=== PATIENT | female | born 1945 | race Caucasian/White ===

== ENCOUNTER 2020-04-24 10:08 | Inpatient (IN) ==
--- OUTSIDE RECORDS SUMMARY | 2020-04-24 10:11 | External Medical Summary | Continuity of Care Document ---
:1945 Author Name Glo Hoffman Address Unavailable Unavailable , Care Team Providers Name Role Phone Maci Goodrich M.D. [email or web address] Ram[place]rez M.D. 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) Hypercalcemia (275.42) (E83.52) Fibromyalgia (729.1) (M79.7) Depression (311) (F32.9) Dysmetabolic syndrome X (277.7) (E88.81) Chronic pain syndrome (338.4) (G89.4) Allergies and Adverse Reactions Feldene CAPS (Allergy) Reaction: Rash Levaquin TABS (Allergy) Reaction: Diarrh ea Penicillins (Allergy) Reaction: Rash, [place] Sulfa Drugs (Allergy) Reaction: Rash Suprax TABS (Allergy) Reaction: Diarrhea Medications metFORMIN HCl ER 500 MG Oral Tablet Exte nded Release 24 Hour; TAKE 2 TABLET Twice daily Start: 04-Aug-2011 Refills: 0 Claritin-D 24 Hour 10-240 MG Oral Tablet Extended Release 24 Hour; TAKE 1 TABLET DAILY DIRECTED. Refills: 0 Ipratropium [place] 0.03 % Nasal Solution; INSTILL 2 SQUIRT Every 6 hours Refills: 0 Nasalide SOLN Refills: 0 ProAir HFA 108 (90 Base) MCG/ACT Inhalat ion Aerosol Solution; INHALE 2 PUFFS Every 6 hours Refills: 0 metOLazone 2.5 MG Oral Tablet; TAKE 1 TABLET DAILY. Refills: 0 Spironolactone 100 MG Oral Tablet; TAKE 1 TABLET ONCE DAILY. Refills: 0 Klor-Con 10 10 MEQ Oral Tablet Extended Release; TAKE 1 TABL ET 3 TIMES DAILY. Refills: 0 HYDROcodone-Acetaminophen 10-325 MG Oral Tablet; TAKE 1 TABL ET Every 6 hours Refills: 0 CeleBREX 200 MG Oral Capsule; TAKE 1 CAPSULE TWICE DAILY NEEDED. Refills: 0 tiZANidine HCl - 4 MG Oral Tablet; TAKE 1 TABLET 3 TIMES RAZA LY. Refills: 0 fentaNYL 25 MCG/HR Transdermal Patch 72 Hour; APPLY 1 PATCH EVERY 3 DAYS Refills: 0 Asmanex (120 Metered Doses) 220 MCG/INH Inhalation Aerosol Powder Breath Activated; INHALE 2 PUFFS Daily Refills: 0 Zolpidem Tartrate ER 12.5 MG Oral Tablet Extended Release; T yolanda 1 tablet daily Refills: 0 Vitamin B Complex CAPS; TAKE 1 CAPSULE DAILY. Refills: 0 Vitamin C 500 MG Oral Tablet; Take 1 tablet twice daily Refills: 0 Centrum Silver Oral Tablet; TAKE 1 TABLET DAILY. Refills: 0 Aspirin 81 MG TABS; TAKE 1 TABLET DAILY. Refills: 0 Sensipar 30 MG Oral Tablet; TAKE 1 TABLET DAILY. Radha Goodrich Start: 10-Sep-2011 Quantity: 90 Refills: 3 Synthroid 125 MCG Oral Tablet; TAKE 1 TA BLET Daily Take in the morning with water, 30 minutes before eating anything. Yasmin Goodrich Start: 03-Dec-2011 Quantity: 30 Refills: 5 Procedures Procedures not documented Immunizations Immunizations not documented Plan of Treatment Planned Observations Planned Goals not documented Results No Known Results Results not documented
--- OUTSIDE RECORDS SUMMARY | 2020-04-24 10:11 | External Medical Summary | Continuity of Care Document ---
:1945 Author Name Glo Hoffman Address Unavailable Unavailable , Care Team Providers Name Role Phone Maci Goodrich M.D. Unavailable [email or web address] Rodrigo Ramírez M.D. Unavailable [email or web address] [place] Angela ISSA Unavailable Unavailable Unavailable Unavailable Unavailable [...] Rash Suprax TABS (Allergy) Reaction: Diarrhea Medications Synthroid 125 MCG Oral Tablet; TAKE 1 TA BLET Daily Take in the morning with water, 30 minutes before eating anything. Yasmin Goodrich OctAric Start: 03-Dec-2011 Quantity: 30 Refills: 5 Sensipar 30 MG Oral Tablet; TAKE 1 TABLET DAILY. Radha Goodrich Start: 10-Sep-2011 Quantity: 90 Refills: 3 metFORMIN HCl ER 500 MG Oral Tablet Exte nded Release 24 Hour; TAKE 2 TABLET Twice daily Start: 04-Aug-2011 Refills: 0 Claritin-D 24 Hour 10-240 MG Oral Tablet Extended Release 24 Hour; TAKE 1 TABLET DAILY DIRECTED. Refills: 0 Ipratropium [place] 0.03 % Nasal Solution; INSTILL 2 SQUIRT [...] TABS; TAKE 1 TABLET DAILY. Refills: 0 Procedures Procedures not documented Immunizations Immunizations not documented Plan of Treatment Planned Observations Planned Goals not documented Results No Known Results Results not documented
--- NOTE | 2020-04-24 10:45 | Emergency Department Note ---
History of Present Illness General Chief complaint: Cardiac Assessment Stated complaint: CARDIAC ASSESSMENT Time Seen by Provider: 04/24/20 10:18 Source: patient Mode of arrival: ambulatory Limitations: no limitations History of Present Illness Provider complaint: LE edema This is a74 to female who presents after being found to have an elevated heart rate at her PCP. Pt states she went to see her PCP at [facility] yesterday due to increased ankle swelling and was found to have an elevated HR. Pt states she was told to return today for a recheck and when she did her HR was still elevated so she was sent to the emergency room. Pt states she thinks she had mild sense of racing heart this am, no fluttering/skipping. States no hx of dysrhythmia. Pt states no change in meds or diet. No change in activity. Pt has chronic pain due to spinal stenosis and fibromyalgia. Denies hx of CHF. Pt denies SOB. Pt denies trauma. No numbness/tingling, no change in bowel/bladder function, no recent fevers/chills. Pt seen in conjunction with the resident, Dr. Townsend. Pt seen during a time of high acuity and national emergency pandemic while wearing PPE. Home Medications Home Medications Medication Instructions Recorded Confirmed Type Asmanex [place] 2 inh INHALATION DAILY 04/24/20 04/24/20 History Centrum Silver 1 tab PO DAILY 04/24/20 04/24/20 History albuterol sulfate [ProAir HFA] 2 puff INHALATION DIRECTED 04/24/20 04/24/20 History ascorbic acid (vitamin C) [Vitamin 500 mg PO DAILY 04/24/20 04/24/20 History C] celecoxib [Celebrex] 200 mg PO BID 04/24/20 04/24/20 History cholecalciferol (vitamin D3) 10 mcg PO DAILY 04/24/20 04/24/20 History [Vitamin D3] coenzyme Q10 [Co Q-10] 50 mg PO DAILY 04/24/20 04/24/20 History doxycycline hyclate 50 mg PO DAILY 04/24/20 04/24/20 History fentanyl [Duragesic] 1 patch TRANSDERMAL Q72H 04/24/20 04/24/20 History flunisolide 1 spray INTRANASAL DAILY 04/24/20 04/24/20 History guaifenesin [Mucinex] 600 mg PO BID 04/24/20 04/24/20 History ipratropium bromide 2 spray INTRANASAL UD 04/24/20 04/24/20 History levothyroxine [Synthroid] 112 mcg PO DAILY 04/24/20 04/24/20 History metformin 1,000 mg PO BID 04/24/20 04/24/20 History omega 2-tct-mot-fish oil 1 cap PO TID 04/24/20 04/24/20 History spironolactone [Aldactone] 100 mg PO DAILY 04/24/20 04/24/20 History tizanidine [Zanaflex] 4 mg PO QID 04/24/20 04/24/20 History vitamin B complex 1 tab PO DAILY 04/24/20 04/24/20 History zolpidem 12.5 mg PO DAILY 04/24/20 04/24/20 History potassium chloride [Klor-Con 10] 20 meq PO BID #120 tab 04/25/20 04/24/20 Rx Allergies Allergy/AdvReac Type Severity Reaction Status Date / Time Penicillins Allergy Unknown RASH,ITCH Verified 05/04/16 05:57 piroxicam Allergy Unknown PT USES Verified 05/04/16 05:57 CELEBREX AT HOME-RASH Sulfa (Sulfonamide Allergy Unknown RASH TO Verified 05/04/16 05:57 Antibiotics) SULFA DRUGS Cephalosporins AdvReac Unknown SUPRAX-GI Verified 05/04/16 05:57 UPSET levofloxacin AdvReac Unknown GI UPSET Verified 05/04/16 05:57 oxycodone AdvReac Unknown NAUSEA-MILD Verified 05/04/16 05:57 DISORIENTATION Past Med/Surg History Medical History (Updated 04/26/20 @ 00:13 by Yuko Fernandez DO) Allergic rhinitis (Chronic) Asthma (Chronic) Chronic pain (Acute) DM type 2 (diabetes mellitus, type 2) (Chronic) Dyslipidemia (Chronic) Fibromyalgia (Chronic) H/O Mansi thyroiditis (Chronic) H/O hyperparathyroidism (Chronic) Hypertension (Acute) Surgical History (Updated 04/24/20 @ 14:46 by Aaliyah Mcnair DO) H/O cervical spine surgery (Chronic) H/O parathyroidectomy (Chronic) H/O partial thyroidectomy (Chronic) H/O repair of rotator cuff (Chronic) History of arthroplasty of left knee (Chronic) History of arthroplasty of right knee (Chronic) S/P section (Chronic) S/P lumbar discectomy (Chronic) Family History (Updated 04/24/20 @ 14:46 by Aaliyah Mcnair DO) Other Coronary heart disease Diabetes Social History (Updated 04/24/20 @ 14:46 by Aaliyah Mcnair DO) Preferred Language: Swedish Communication Ability: Effective Beliefs That Will Affect Care: None Current Living Situation: Spouse Feels Safe at Home: Yes Smoking Status: Never smoker Second Hand Exposure: No ; Hx Alcohol Use: Yes Alcohol type: wine Hx Substance Use: No Review of Systems See HPI for pertinent positives & negatives. and A total of 10 systems reviewed and were otherwise negative Physical Exam Vital Signs Vital Signs - 24 hr 04/24/20 10:12 04/24/20 11:18 Temperature 37.1 C Temperature Source Oral Pulse Rate 111 H Pulse Rhythm Regular Pulse Strength Normal Respiratory Rate 18 Respiratory Effort / Characteristics Non-Labored Spontaneous Respiratory Depth Normal Respiratory Pattern Regular Blood Pressure 225/88 H Blood Pressure Mean 133 Blood Pressure Position Sitting Pulse Oximetry 100 Oxygen Delivery Method Room Air Room Air Sepsis Recent Fever Within 48 Hours No Sepsis New/Unexplained Change in Mental Status No Sepsis Action Taken by Nursing No Action Required GENERAL: alert, well appearing, well nourished, no distress, non-toxic EYE EXAM: normal conjunctiva, PERRL and EOM's grossly intact OROPHARYNX: no exudate, no erythema, lips, buccal mucosa, and tongue normal and mucous membranes are moist NECK: supple, no nuchal rigidity, no adenopathy, non-tender LUNGS: Clear to auscultation. Normal chest wall mechanics, no w/r/r HEART: no murmurs, S1 normal and S2 normal ABDOMEN: abdomen soft, non-tender, normo-active bowel sounds, no masses, no rebound or guarding. BACK: Back is symmetrical on inspection and there is no deformity, no midline tenderness, no CVA tenderness. Kyphotic. SKIN: no rashes and no bruising UPPER EXTREMITIES: upper extremities are grossly normal. FROM, nml pulses b/l. LOWER EXTREMITIES: 4+ pitting edema. FROM, nml pulses b/l. NEURO EXAM: Normal sensorium, cranial nerves II-XII grossly intact, normal speech, no gross weakness of arms, no gross weakness of legs. Gross sensation intact. Course Course 1202: Patient rechecked and updated at bedside. Patient blood pressure is improved, patient denies any sense of racing heart/palpitations. Dr. Townsend did discuss the case with Dr. Mcnair, [facility]. Administered Medications Discontinued Medications Hydrocodone Bitart/Acetaminophen ([place] 10/325) 1 tab PO Q4H PRN PRN Reason: Pain Stop: 05/08/20 15:43 Last Admin: 04/25/20 15:47 Dose: 1 tab Documented by: [id number] Admin: 04/25/20 11:02 Dose: 1 tab Documented by: [id number] Admin: 04/25/20 06:13 Dose: 1 tab Documented by: [id number] Admin: 04/25/20 02:07 Dose: 1 tab Documented by: [id number] Admin: 04/24/20 20:46 Dose: 1 tab Documented by: [id number] Admin: 04/24/20 16:27 Dose: 1 tab Documented by: [id number] Celecoxib (Celebrex) 100 mg PO BID RENA Stop: 05/24/20 20:59 Last Admin: 04/25/20 08:17 Dose: 100 mg Documented by: [id number] Admin: 04/24/20 22:27 Dose: 100 mg Documented by: [id number] Doxycycline Hyclate (Vibramycin) 50 mg PO DAILY RENA Stop: 05/25/20 08:59 Last Admin: 04/25/20 08:17 Dose: 50 mg Documented by: [id number] Fentanyl (Duragesic) 50 mcg TD Q72H RENA Stop: 05/08/20 15:59 Last Admin: 04/24/20 17:44 Dose: 50 mcg Documented by: [id number] Fluticasone Furoate (Arnuity Ellipta 200mcg) 1 puffs INH DAILY RENA Stop: 05/24/20 15:59 Last Admin: 04/25/20 08:19 Dose: 1 puffs Documented by: [id number] Admin: 04/24/20 18:46 Dose: 1 puffs Documented by: [id number] Guaifenesin (Mucinex) 600 mg PO BID RENA Stop: 05/24/20 20:59 Last Admin: 04/25/20 08:16 Dose: 600 mg Documented by: [id number] Admin: 04/24/20 21:44 Dose: 600 mg Documented by: [id number] Magnesium Sulfate/Dextrose (Magnesium Sulfate / D5w) 1 gm in 100 mls @ 200 mls/hr IV Q30M RENA Stop: 04/24/20 12:36 Last Infusion: 04/24/20 14:41 Dose: 0 mls/hr Documented by: [id number] Admin: 04/24/20 14:02 Dose: 200 mls/hr Documented by: [id number] Infusion: 04/24/20 13:30 Dose: 200 mls/hr Documented by: [id number] Admin: 04/24/20 13:00 Dose: 200 mls/hr Documented by: [id number] Potassium Phosphate 15 mmol/ (Sodium Chloride) 255 mls @ 88 mls/hr IV TODAY@1245 ONE Stop: 04/24/20 15:38 Last Infusion: 04/24/20 18:13 Dose: 0 mls/hr Documented by: [id number] Admin: 04/24/20 13:00 Dose: 88 mls/hr Documented by: [id number] Magnesium Sulfate/Dextrose (Magnesium Sulfate / D5w) 1 gm in 100 mls @ 50 mls/hr IV ONE ONE Stop: 04/24/20 17:59 Last Infusion: 04/24/20 19:57 Dose: 0 mls/hr Documented by: [id number] Admin: 04/24/20 17:52 Dose: 50 mls/hr Documented by: [id number] Magnesium Sulfate/Dextrose (Magnesium Sulfate / D5w) 1 gm in 100 mls @ 50 mls/hr IV ONE ONE Stop: 04/25/20 11:59 Last Infusion: 04/25/20 12:18 Dose: 0 mls/hr Documented by: [id number] Admin: 04/25/20 10:18 Dose: 50 mls/hr Documented by: [id number] Potassium Chloride (K Tony / Wtr) 10 meq in 100 mls @ 100 mls/hr IV Q1H RENA Stop: 04/25/20 12:59 Last Infusion: 04/25/20 13:22 Dose: 0 mls/hr Documented by: [id number] Admin: 04/25/20 12:17 Dose: 100 mls/hr Documented by: [id number] Infusion: 04/25/20 12:14 Dose: 100 mls/hr Documented by: [id number] Admin: 04/25/20 11:14 Dose: 100 mls/hr Documented by: [id number] Infusion: 04/25/20 11:14 Dose: 100 mls/hr Documented by: [id number] Admin: 04/25/20 10:18 Dose: 100 mls/hr Documented by: [id number] Insulin Aspart (Novolog Flexpen) 0 units SC ACHS [facility] Stop: 05/24/20 16:29 Last Admin: 04/25/20 12:05 Dose: 2 units Documented by: [id number] Cosigned by: [id number] Admin: 04/25/20 08:16 Dose: 3 units Documented by: [id number] Cosigned by: [id number] Admin: 04/24/20 21:40 Dose: 1 units Documented by: [id number] Cosigned by: [id number] Admin: 04/24/20 17:51 Dose: 2 units Documented by: [id number] Cosigned by: [id number] Insulin Glargine (Lantus Solostar Pen) 5 units SC BID [facility] Stop: 05/24/20 20:59 Last Admin: 04/25/20 08:16 Dose: 5 units Documented by: [id number] Cosigned by: [id number] Admin: 04/24/20 21:39 Dose: 5 units Documented by: [id number] Cosigned by: [id number] Labetalol HCl (Normodyne) 10 mg IV NOW STA Stop: 04/24/20 11:19 Last Admin: 04/24/20 11:33 Dose: 10 mg Documented by: [id number] Cosigned by: [id number] Levothyroxine Sodium (Synthroid) 112 mcg PO DAILYBB [facility] Stop: 05/25/20 06:29 Last Admin: 04/25/20 06:15 Dose: 112 mcg Documented by: [id number] Lidocaine (Lidoderm 5%) 1 patch TD QAM [facility] Stop: 05/24/20 15:59 Last Admin: 04/25/20 08:20 Dose: Not Given Documented by: [id number] Admin: 04/24/20 17:46 Dose: 1 patch Documented by: [id number] Miscellaneous (Fentanyl Patch Check Placement) 1 ea N/A QS [facility] Stop: 05/24/20 15:59 Last Admin: 04/25/20 08:17 Dose: 1 ea Documented by: [id number] Admin: 04/24/20 23:53 Dose: 1 ea Documented by: [id number] Admin: 07/15/20 17:46 Dose: 1 ea Documented by: [id number] Miscellaneous (Order Awaiting Action) 1 ea N/A QS RENA Stop: 05/24/20 15:59 Last Admin: 04/24/20 17:53 Dose: Not Given Documented by: [id number] Olenacellpradip (Order Awaiting Action) 1 ea N/A QS RENA Stop: 05/24/20 15:59 Last Admin: 04/24/20 17:53 Dose: Not Given Documented by: [id number] Olenacellaneous (Remove Lidoderm Patch) 1 ea N/A DAILY@2100 RENA Stop: 05/24/20 20:59 Last Admin: 04/24/20 21:42 Dose: Not Given Documented by: [id number] Systane: Non- Formulary Patient's Own Med 2 ea OP DAILY PRN PRN Reason: EYE DRYNESS Stop: 05/24/20 17:38 Last Admin: 04/25/20 08:18 Dose: 2 drops Documented by: [id number] Saline Nasal [place]: Non-Formulary Patient's Own Med 2 ea NA Q4 PRN PRN Reason: CONGESTION Stop: 05/24/20 17:45 Last Admin: 04/25/20 08:19 Dose: 2 sprays Documented by: [id number] Flunisolide: Non- Formulary Patient's Own Med 1 ea NA DAILY RENA Stop: 05/24/20 18:14 Last Admin: 04/25/20 08:20 Dose: 1 sprays Documented by: [id number] Ipratropium [place] Nasal [place]: Non- Formulary Patient's Own Med 1 ea NA BID RENA Stop: 05/24/20 20:59 Last Admin: 04/25/20 08:18 Dose: 1 sprays Documented by: [id number] Admin: 04/24/20 21:41 Dose: 1 sprays Documented by: [id number] Potassium Chloride (Klor-Con M20) 20 meq PO NOW STA Stop: 04/24/20 11:48 Last Admin: 04/24/20 13:01 Dose: Not Given Documented by: [id number] Potassium Chloride (Klor-Con M20) 20 meq PO BID RENA Stop: 04/26/20 09:01 Last Admin: 04/25/20 10:18 Dose: 20 meq Documented by: [id number] Potassium Phosphate (Potassium Phosphate Replace) 15 mmol IV NOW STA Stop: 04/24/20 11:36 Last Admin: 04/24/20 13:01 Dose: Not Given Documented by: [id number] Tizanidine HCl (Zanaflex) 4 mg PO QID RENA Stop: 05/24/20 15:59 Last Admin: 04/25/20 06:33 Dose: 4 mg Documented by: [id number] Admin: 04/24/20 22:27 Dose: 4 mg Documented by: [id number] Admin: 04/24/20 17:48 Dose: 4 mg Documented by: [id number] Tizanidine HCl (Zanaflex) 4 mg PO 0000,0330,0900,1400 RENA Stop: 05/25/20 08:59 Last Admin: 04/25/20 13:42 Dose: 4 mg Documented by: [id number] Admin: 04/25/20 07:35 Dose: Not Given Documented by: [id number] Vitamin D (Vitamin D3) 400 units PO DAILY RENA Stop: 05/25/20 08:59 Last Admin: 04/25/20 08:17 Dose: 400 units Documented by: [id number] Zolpidem Tartrate (Ambien) 10 mg PO HS RENA Stop: 05/24/20 20:59 Last Admin: 04/24/20 21:39 Dose: 10 mg Documented by: [id number] Medical Decision Making Differential Diagnosis Differential diagnosis includes etiologies such as premature contractions, electrolyte abnormality, cardiac dysrhythmia, thyroid dysfunction, pulmonary embolism, infection, gastrointestinal, as well as others were entertained. Medical Records Attestation: I reviewed the patient's medical records. Home Medications Current Medication List: was personally reviewed by me Laboratory Data Attestation: I reviewed the patient's lab results. Result diagrams: 04/25/20 08:24 04/25/20 08:24 Lab Results 04/24/20 04/24/20 04/24/20 Range/Units 10:45 10:46 10:46 WBC 12.51 H (4.8-10.8) K/uL RBC 4.82 (4.2-5.4) M/uL Hgb 15.0 (12.0-16.0) g/dL Hct 41.8 (37-47) % MCV 86.7 (80-100) fL MCH 31.1 (25-34) pg MCHC 35.9 (32-36) g/dL RDW Std Deviation 44.1 (36.4-46.3) fL RDW Coeff of Minor 14.0 (11.5-14.5) % Plt Count 344 (130-400) K/uL MPV 9.2 (7.4-10.4) fL Immature Gran % (Auto) 0.4 % Neut % (Auto) 75.3 % Lymph % (Auto) 17.7 % [place] % (Auto) 5.8 % Eos % (Auto) 0.4 % Baso % (Auto) 0.4 % Neut # (Auto) 9.41 H (1.4-6.5) K/uL Lymph # (Auto) 2.22 (1.2-3.4) K/uL [place] # (Auto) 0.73 H (0.11-0.59) K/uL Eos # (Auto) 0.05 (0-0.5) K/uL Baso # (Auto) 0.05 (0-0.2) K/uL Immature Gran # (Auto) 0.05 H (0.00-0.02) K/uL PT Cancelled INR Cancelled APTT Cancelled PTT Ratio Cancelled Sodium 133 L (136-145) mmol/L Potassium 3.3 L (3.5-5.1) mmol/L Chloride 96 L (98-107) mmol/L Carbon Dioxide 28 (21-32) mmol/L Anion Gap 9.0 (3-11) BUN 11 (7-18) mg/dl Creatinine 0.99 (0.6-1.2) mg/dl Est Cr Clr Drug Dosing 50.2 ml/min Est GFR ( Amer) 65.5 Est GFR (Non-Af Amer) 56.5 BUN/Creatinine Ratio 11.5 (10-20) Glucose 159 H (70-99) mg/dl Calcium 10.8 H (8.5-10.1) mg/dl Phosphorus 2.1 L (2.5-4.9) mg/dl Magnesium 1.1 L (1.8-2.4) mg/dl Total Bilirubin 0.9 (0.2-1) mg/dl AST 42 H (15-37) U/L ALT 63 (12-78) U/L Alkaline Phosphatase 92 (45-117) U/L Troponin I < 0.015 (0-0.045) ng/ml NT-Pro-B Natriuret Pep 107 (0-900) pg/ml Total Protein 8.2 (6.4-8.2) gm/dl Albumin 4.2 (3.4-5.0) gm/dl Globulin 4.0 (2.5-4.0) gm/dl Albumin/Globulin Ratio 1.1 (0.9-2) TSH 1.260 (0.300-4.500) uIu/ml Specimen Hemolysis 04/24/20 Range/Units 11:43 WBC (4.8-10.8) K/uL RBC (4.2-5.4) M/uL Hgb (12.0-16.0) g/dL Hct (37-47) % MCV (80-100) fL MCH (25-34) pg MCHC (32-36) g/dL RDW Std Deviation (36.4-46.3) fL RDW Coeff of Minor (11.5-14.5) % Plt Count (130-400) K/uL MPV (7.4-10.4) fL Immature Gran % (Auto) % Neut % (Auto) % Lymph % (Auto) % [place] % (Auto) % Eos % (Auto) % Baso % (Auto) % Neut # (Auto) (1.4-6.5) K/uL Lymph # (Auto) (1.2-3.4) K/uL [place] # (Auto) (0.11-0.59) K/uL Eos # (Auto) (0-0.5) K/uL Baso # (Auto) (0-0.2) K/uL Immature Gran # (Auto) (0.00-0.02) K/uL PT 10.3 INR 1.0 APTT 26.6 PTT Ratio 1.0 Sodium (136-145) mmol/L Potassium (3.5-5.1) mmol/L Chloride (98-107) mmol/L Carbon Dioxide (21-32) mmol/L Anion Gap (3-11) BUN (7-18) mg/dl Creatinine (0.6-1.2) mg/dl Est Cr Clr Drug Dosing ml/min Est GFR ( Amer) Est GFR (Non-Af Amer) BUN/Creatinine Ratio (10-20) Glucose (70-99) mg/dl Calcium (8.5-10.1) mg/dl Phosphorus (2.5-4.9) mg/dl Magnesium (1.8-2.4) mg/dl Total Bilirubin (0.2-1) mg/dl AST (15-37) U/L ALT (12-78) U/L Alkaline Phosphatase (45-117) U/L Troponin I (0-0.045) ng/ml NT-Pro-B Natriuret Pep (0-900) pg/ml Total Protein (6.4-8.2) gm/dl Albumin (3.4-5.0) gm/dl Globulin (2.5-4.0) gm/dl Albumin/Globulin Ratio (0.9-2) TSH (0.300-4.500) uIu/ml Specimen Hemolysis Blood Pressure Blood Pressure Findings: Elevated blood pressure Blood Pressure Disposition: further management by hospitalist MDM Narrative Pt here due to elevated HR. Labs drawn and sent after pt seen by resident and pt placed on court recording monitor. Pt anxious and agitated about being sent in by her PCP. Pt found to have multiple electrolyte abnormalities. No new dysrhythmia however pt with symptomatic tachycardia. I do not suspect ACS, tamponade, infection, thyroid storm, CHF, dissection, PE, perf. Discussed results with pt. Due to persistent tachycardia and electrolyte abnormalities, I feel pt would benefit in patient monitoring. Pt verbalized understanding and was in agreement. An order was placed for continuous cardiac monitoring. The monitor shows a rate of 112_ with _sinus tachycardia_ rhythm. Impression & Plan Hypertension, Hypomagnesemia, Hypophosphatemia, Hypokalemia, Palpitation, Chronic pain, Tachycardia Discharge Plan Visit Data *Final* Discharge Date/Time: 04/24/20 14:09 Chief Complaint: Cardiac Assessment Stated Complaint: CARDIAC ASSESSMENT ED Provider: Yuko Fernandez ED Midlevel Provider: Wyatt Townsend Discharge Problem: Hypertension, Hypomagnesemia, Hypophosphatemia, Hypokalemia, Palpitation, Chronic pain, Tachycardia Patient Disposition: Admitted As Inpatient Condition: Good Discharge Instructions Interventions: ED Discharge Assessment Last Done: 04/24/20 14:09
[2020-04-24 10:58] LABS: Basophils # (auto) 0.05 K/uL (0-0.2); Basophils % (auto) 0.4 %; Eosinophils # (auto) 0.05 K/uL (0-0.5); Eosinophils % (auto) 0.4 %; Hematocrit (blood only) 41.8 % (37-47); Immature Granulocytes # (auto) 0.05 K/uL (0.00-0.02); Immature Granulocytes % (auto) 0.4 %; Lymphocytes # (auto) 2.22 K/uL (1.2-3.4); Lymphocytes % (auto) 17.7 %; Mean Corpuscular Hemoglobin 31.1 pg (25-34); Mean Corpuscular Hgb Conc 35.9 g/dL (32-36); Mean Corpuscular Volume 86.7 fL (80-100); Mean Platelet Volume 9.2 fL (7.4-10.4); Monocytes # (auto) 0.73 K/uL (0.11-0.59); Monocytes % (auto) 5.8 %; Neutrophils # (auto) 9.41 K/uL (1.4-6.5); Neutrophils % (auto) 75.3 %; Platelet Count 344 K/uL (130-400); RDW Standard Deviation 44.1 fL (36.4-46.3); Red Blood Count 4.82 M/uL (4.2-5.4); White Blood Count 12.51 K/uL (4.8-10.8)
--- NOTE | 2020-04-24 11:06 | XRay Report ---
XR chest 1V portable CLINICAL HISTORY: chest discomfort tachycardia COMPARISON STUDY: 04/07/2016 FINDINGS: The cardiac and mediastinal contours are normal. There is no evidence of focal pulmonary co nsolidation. There is no evidence of failure. No pleural effusions are visualized.[Postsurgical veras es are present within the cervical spine and thoracolumbar spine. There is an old left mid humeral fr acture. Arthritic changes are present within the shoulders. IMPRESSION: No active disease in the chest. ACT 112: Negative or not required by law. Electronically signed by: Savage Maria M.D. 04/24/2020 11:05 AM
[2020-04-24 11:17] LABS: Alanine Aminotransferase 63 U/L (12-78); Albumin Level 4.2 gm/dl (3.4-5.0); Aspartate Aminotransferase 42 U/L (15-37); BUN Creatinine Ratio 11.5 (10-20); Blood Urea Nitrogen 11 mg/dl (7-18); Calcium 10.8 mg/dl (8.5-10.1); Carbon Dioxide 28 mmol/L (21-32); Chloride 96 mmol/L (98-107); Creatinine Clr Calc Pharmacy 50.2 ml/min; Est GFR (African American) 65.5; Est GFR (Non-African American) 56.5; Glucose 159 mg/dl (70-99); Magnesium 1.1 mg/dl (1.8-2.4); Potassium 3.3 mmol/L (3.5-5.1); Sodium 133 mmol/L (136-145)
[2020-04-24] MEDS ORDERED: LABETALOL HCL IV 5 MG/ML 20ML IV STA (11:18)
[2020-04-24 11:28] LABS: Albumin Globulin Ratio 1.1 (0.9-2); Alkaline Phosphatase 92 U/L (45-117); Bilirubin,Total 0.9 mg/dl (0.2-1); NT Pro B Type Natriuretic Pept 107 pg/ml (0-900); Phosphorus 2.1 mg/dl (2.5-4.9); Total Protein 8.2 gm/dl (6.4-8.2); Troponin I < 0.015 ng/ml (0-0.045)
[2020-04-24] MEDS ORDERED: POTASSIUM PHOS 3 MMOL/1 ML INFUSION IV STA (11:35)
[2020-04-24] MEDS ORDERED: POTASSIUM CHLORIDE / WTR 10 MEQ/100 ML PLCT IV SCH (11:45)
[2020-04-24] MEDS ORDERED: POTASSIUM CHLORIDE 20 MEQ TABCR PO STA (11:47)
[2020-04-24 12:04] LABS: Partial Thromboplastin Time 26.6 Seconds (21.0-31.0); Prothrombin Time 10.3 Seconds (9.0-12.0)
[2020-04-24] MEDS ORDERED: POTASSIUM PHOSPHATE 15 MMOL in SODIUM CHLORIDE 0.9% 250 ML IV ONE (12:45)
[2020-04-24] MEDS: MAGNESIUM SULFATE / D5W 1 GM/100 ML BAG IV SCH ×2 (13:00→14:02)
--- NOTE | 2020-04-24 14:41 | History & Physical Report ---
Date of Service April 24, 2020 Assessment & Plan (1) Palpitation: Patient with episode of palpitations this AM. Was reported to be tachycardic during outpatient encounter. She denies CP, SOB, dizziness or LOC. EKG with NSR. Troponin negative. She has multiple electrolyte abnormalities wh ich could predispose to brief episodes of arrhythmia. -Cardiac monitoring -Replete electrolytes as below Present on Admission?: Yes (2) Hypokalemia: K=3.3. Patient on diuretics at home. Was administered KPhos and KCl -Repeat labs in AM -Hold diuretics for now Present on Admission?: Yes (3) Hypophosphatemia: PO4 o=2.1 -Patient administered K-Phos -Repeal level in AM Present on Admission?: Yes (4) Hypomagnesemia: Mg low at 1.1 -Repleted -Repeat level in AM Present on Admission?: Yes (5) Lower extremity edema: Patient with bilateral LE edema. Etiology uncertain. She does not appear to be volume overloaded. No evidence of liver or kidney abnormality. TSH within normal limits. Albumin normal at 4.2 -Hold Metolazone for now to allow for electrolyte repletion -Hold Spironolactone fo rnow -Check UA -Compression stockings as tolerated Present on Admission?: Yes (6) Chronic pain: Patient with chronic pain, acutely worsened with her trip to the hospital -Continue home medication regimen, Fentanyl patch, Celebrex, Tizanidine -Lidoderm patch -Morphine PRN Present on Admission?: Yes (7) Hypertension: Blood pressure elevated in setting of stress, pain and agitation. Labetalol given. Patine tis not on any antihypertensive agents at this time -Continue to monitor BP Present on Admission?: Yes (8) Postsurgical hypothyroidism: Chronic. TSH WNL -Continue Synthroid Present on Admission?: Yes (9) Asthma, mild persistent: Chronic. Stable. No SOB/cough/wheeze. Adequate oxygenation on room air -Continue Albuterol, Asmanex -Monitor Present on Admission?: Yes (10) Fibromyalgia: Chronic -Pain control as above Present on Admission?: Yes (11) DM type 2 (diabetes mellitus, type 2): Chronic -Hold Metformin -ISS, Lantus 5u BID -Goal blood sugar 100 - 140 Present on Admission?: Yes (12) Allergic rhinitis: Chronic -Continue nasal sprays Flunisolide, Ipratropium -Continue Mucinex Chronic Suppressive Doxycycline for eye infections - 50mg po daily - Continue F/E/N - Heplock, electrolyte repletion and monitoring as above, CC diet as tolerated Ppx - Low risk for DVT, compression stockings as above Code - DNR/DNI per discussion with patient Dispo - Admission to medical floor with telemetry Admission and Anticipated Discharge Date Admission Date: 04/24/20 Anticipated date of discharge: 04/25/20 History of Present Illness Chief Complaint: Edema, palpitations Primary Care Provider: Julio César Mukherjee MD Caity Garrett is a 74yo female presenting with one week of bilateral LE edema, palpitations at 04:30 this AM. Patient has longstanding history of ankle edema for which she takes diuretics. She noted a worsening of BL LE edema over the last week. She also reports occasional palpitations. She resides at [facility] with her . She was seen yesterday in the clinic and found to be tachycardic to 137 bpm. She was rechecked today and was still tachycardic at 127bpm therefore she was sent to the ER for additional workup. She has tried to place compression stockings at home, however, was unable to get them over her feet. She also reports that the compression causes a lot of muscular discomfort due to her Fibromyalgia. Patient reports being unable to sleep last night as she has run out of her Zolpidem. She experienced palpitations at 04:30 this AM which she thinks may have been secondary to stress. She denies CP/SOB/cough/abdominal pain/nausea/vomiting/diarrhea/constipation/dysuria. She is complaining of severe back pain and inability to get comfortable. On arrival to the ER she was found to be afebrile, hypertensive at 225/88 otherwise stable. NAD ER Course: Labetalol 10mg IV, Magnesium, KCL, KPhos Allergies Allergy/AdvReac Type Severity Reaction Status Date / Time Penicillins Allergy Unknown RASH,ITCH Verified 05/04/16 05:57 piroxicam Allergy Unknown PT USES Verified 05/04/16 05:57 CELEBREX AT HOME-RASH Sulfa (Sulfonamide Allergy Unknown RASH TO Verified 05/04/16 05:57 Antibiotics) SULFA DRUGS Cephalosporins AdvReac Unknown SUPRAX-GI Verified 05/04/16 05:57 UPSET levofloxacin AdvReac Unknown GI UPSET Verified 05/04/16 05:57 oxycodone AdvReac Unknown NAUSEA-MILD Verified 05/04/16 05:57 DISORIENTATION Home Medications Home Medications Medication Instructions Recorded Confirmed Type albuterol sulfate [ProAir HFA] 2 puff INHALATION DIRECTED 04/24/20 04/24/20 History ascorbic acid (vitamin C) [Vitamin 500 mg PO DAILY 04/24/20 04/24/20 History C] celecoxib [Celebrex] 200 mg PO BID 04/24/20 04/24/20 History cholecalciferol (vitamin D3) 10 mcg PO DAILY 04/24/20 04/24/20 History [Vitamin D3] coenzyme Q10 [Co Q-10] 50 mg PO DAILY 04/24/20 04/24/20 History doxycycline hyclate 50 mg PO DAILY 04/24/20 04/24/20 History fentanyl [Duragesic] 1 patch TRANSDERMAL Q72H 04/24/20 04/24/20 History flunisolide 1 spray INTRANASAL DAILY 04/24/20 04/24/20 History guaifenesin [Mucinex] 600 mg PO BID 04/24/20 04/24/20 History ipratropium bromide 2 spray INTRANASAL UD 04/24/20 04/24/20 History levothyroxine [Synthroid] 112 mcg PO DAILY 04/24/20 04/24/20 History metformin 1,000 mg PO BID 04/24/20 04/24/20 History metolazone 2.5 mg PO DAILY 04/24/20 04/24/20 History mometasone [Asmanex Twisthaler] 2 inh INHALATION DAILY 04/24/20 04/24/20 History kypiyzgb-nuz-TO-lycopen-lutein 1 tab PO DAILY 04/24/20 04/24/20 History [Centrum Silver] omega 7-qej-wbe-fish oil 1 cap PO TID 04/24/20 04/24/20 History potassium chloride [Klor-Con 10] 10 meq PO TID 04/24/20 04/24/20 History spironolactone [Aldactone] 100 mg PO DAILY 04/24/20 04/24/20 History tizanidine [Zanaflex] 4 mg PO QID 04/24/20 04/24/20 History vitamin B complex 1 tab PO DAILY 04/24/20 04/24/20 History zolpidem 12.5 mg PO DAILY 04/24/20 04/24/20 History Past Med/Surg History Medical History (Updated 04/24/20 @ 15:00 by Aaliyah Mcnair DO) Allergic rhinitis (Chronic) Asthma (Chronic) Chronic pain (Acute) DM type 2 (diabetes mellitus, type 2) (Chronic) Dyslipidemia (Chronic) Fibromyalgia (Chronic) H/O Mansi thyroiditis (Chronic) H/O hyperparathyroidism (Chronic) Hypertension (Acute) Surgical History (Updated 04/24/20 @ 14:46 by Aaliyah Mcnair DO) H/O cervical spine surgery (Chronic) H/O parathyroidectomy (Chronic) H/O partial thyroidectomy (Chronic) H/O repair of rotator cuff (Chronic) History of arthroplasty of left knee (Chronic) History of arthroplasty of right knee (Chronic) S/P section (Chronic) S/P lumbar discectomy (Chronic) Family History (Updated 04/24/20 @ 14:46 by Aaliyah Mcnair DO) Other Coronary heart disease Diabetes Social History (Updated 04/24/20 @ 14:46 by Aaliyah Mcnair DO) Feels Safe at Home: Yes Smoking Status: Never smoker Hx Alcohol Use: No Hx Substance Use: No Review of Systems Review of Systems: All systems reviewed & are unremarkable except as noted in HPI & below Physical Exam Physical Exam: General: patient resting comfortably, NAD, non-toxic in appearance, AA&O x 4 Skin: warm, dry, intact, no rashes or lesions HEENT: NC/AT, PERRL, EOMI, anicteric sclera, conjunctiva without injection, external ear normal to inspection and nontender, nares patent, moist mucus membranes, dentition intact, no oropharyngeal lesions, neck supple, trachea midline, no LAD, no thyromegaly, no JVD Heart: +S1/S2, regular, no m/r/g Lungs: equal air entry bilaterally, no rales/rhonchi/wheezes Abd: +BS, soft, NT/ND, no masses/organomegaly/ascites Ext: warm, 2+ pulses in UE/LE bilaterally, no clubbing/cyanosis, +2 nonpitting edema of bilateral LE Neuro: nonfocal, patient AA&O x 4, speech intact, no facial droop, moving all extremities on command with equal strength 5/5 Results & Data Results & Data ([facility]) Vital Signs (Past 12 Hours) Vital Signs Temp Pulse Pulse Resp BP BP Pulse Ox 04/24/20 13:31 88 22 182/122 H 100 04/24/20 13:30 202/107 H 04/24/20 13:00 94 H 20 192/89 H 192/89 H 99 04/24/20 12:56 91 H 20 190/87 H 99 04/24/20 12:40 199/126 H 04/24/20 12:20 190/111 H 04/24/20 12:09 90 20 182/106 H 99 04/24/20 10:12 37.1 C 111 H 18 225/88 H 100 Laboratory Results Lab Results 04/24/20 04/24/20 04/24/20 Range/Units 10:45 10:46 10:46 WBC 12.51 H (4.8-10.8) K/uL RBC 4.82 (4.2-5.4) M/uL Hgb 15.0 (12.0-16.0) g/dL Hct 41.8 (37-47) % MCV 86.7 (80-100) fL MCH 31.1 (25-34) pg MCHC 35.9 (32-36) g/dL RDW Std Deviation 44.1 (36.4-46.3) fL RDW Coeff of Minor 14.0 (11.5-14.5) % Plt Count 344 (130-400) K/uL MPV 9.2 (7.4-10.4) fL Immature Gran % (Auto) 0.4 % Neut % (Auto) 75.3 % Lymph % (Auto) 17.7 % Sumner % (Auto) 5.8 % Eos % (Auto) 0.4 % Baso % (Auto) 0.4 % Neut # (Auto) 9.41 H (1.4-6.5) K/uL Lymph # (Auto) 2.22 (1.2-3.4) K/uL Sumner # (Auto) 0.73 H (0.11-0.59) K/uL Eos # (Auto) 0.05 (0-0.5) K/uL Baso # (Auto) 0.05 (0-0.2) K/uL Immature Gran # (Auto) 0.05 H (0.00-0.02) K/uL PT Cancelled INR Cancelled APTT Cancelled PTT Ratio Cancelled Sodium 133 L (136-145) mmol/L Potassium 3.3 L (3.5-5.1) mmol/L Chloride 96 L (98-107) mmol/L Carbon Dioxide 28 (21-32) mmol/L Anion Gap 9.0 (3-11) BUN 11 (7-18) mg/dl Creatinine 0.99 (0.6-1.2) mg/dl Est Cr Clr Drug Dosing 50.2 ml/min Est GFR ( Amer) 65.5 Est GFR (Non-Af Amer) 56.5 BUN/Creatinine Ratio 11.5 (10-20) Glucose 159 H (70-99) mg/dl Calcium 10.8 H (8.5-10.1) mg/dl Phosphorus 2.1 L (2.5-4.9) mg/dl Magnesium 1.1 L (1.8-2.4) mg/dl Total Bilirubin 0.9 (0.2-1) mg/dl AST 42 H (15-37) U/L ALT 63 (12-78) U/L Alkaline Phosphatase 92 (45-117) U/L Troponin I < 0.015 (0-0.045) ng/ml NT-Pro-B Natriuret Pep 107 (0-900) pg/ml Total Protein 8.2 (6.4-8.2) gm/dl Albumin 4.2 (3.4-5.0) gm/dl Globulin 4.0 (2.5-4.0) gm/dl Albumin/Globulin Ratio 1.1 (0.9-2) TSH 1.260 (0.300-4.500) uIu/ml Specimen Hemolysis 04/24/20 Range/Units 11:43 WBC (4.8-10.8) K/uL RBC (4.2-5.4) M/uL Hgb (12.0-16.0) g/dL Hct (37-47) % MCV (80-100) fL MCH (25-34) pg MCHC (32-36) g/dL RDW Std Deviation (36.4-46.3) fL RDW Coeff of Minor (11.5-14.5) % Plt Count (130-400) K/uL MPV (7.4-10.4) fL Immature Gran % (Auto) % Neut % (Auto) % Lymph % (Auto) % Sumner % (Auto) % Eos % (Auto) % Baso % (Auto) % Neut # (Auto) (1.4-6.5) K/uL Lymph # (Auto) (1.2-3.4) K/uL Sumner # (Auto) (0.11-0.59) K/uL Eos # (Auto) (0-0.5) K/uL Baso # (Auto) (0-0.2) K/uL Immature Gran # (Auto) (0.00-0.02) K/uL PT 10.3 INR 1.0 APTT 26.6 PTT Ratio 1.0 Sodium (136-145) mmol/L Potassium (3.5-5.1) mmol/L Chloride (98-107) mmol/L Carbon Dioxide (21-32) mmol/L Anion Gap (3-11) BUN (7-18) mg/dl Creatinine (0.6-1.2) mg/dl Est Cr Clr Drug Dosing ml/min Est GFR ( Amer) Est GFR (Non-Af Amer) BUN/Creatinine Ratio (10-20) Glucose (70-99) mg/dl Calcium (8.5-10.1) mg/dl Phosphorus (2.5-4.9) mg/dl Magnesium (1.8-2.4) mg/dl Total Bilirubin (0.2-1) mg/dl AST (15-37) U/L ALT (12-78) U/L Alkaline Phosphatase (45-117) U/L Troponin I (0-0.045) ng/ml NT-Pro-B Natriuret Pep (0-900) pg/ml Total Protein (6.4-8.2) gm/dl Albumin (3.4-5.0) gm/dl Globulin (2.5-4.0) gm/dl Albumin/Globulin Ratio (0.9-2) TSH (0.300-4.500) uIu/ml Specimen Hemolysis Diagnostic Findings XR chest 1V portable CLINICAL HISTORY: chest discomfort tachycardia COMPARISON STUDY: 04/07/2016 FINDINGS: The cardiac and mediastinal contours are normal. There is no evidence of focal pulmonary consolidation. There is no evidence of failure. No pleural effusions are visualized.[Postsurgical changes are present within the cervical spine and thoracolumbar spine. There is an old left mid humeral fracture. Arthritic changes are present within the shoulders. IMPRESSION: No active disease in the chest. ACT 112: Negative or not required by law. Electronically signed by: Savage Maria M.D. 04/24/2020 11:05 AM Dictated: 04/24/20 1104 Transcribed: 04/24/20 1104 ECG Additional Comments: NSR at 94, normal axis, no acute ischemic changes Code Status & VTE Plan Code Status DNR VTE Prophylaxis Plan VTE Prophylaxis will be ordered: Yes PG Care Time/CCT Total # of Minutes Spent Total Time Spent with Patient: Total time spent is greater than 50% in coordination of care (as documented) at patient's floor/unit and/or counseling patient: Coding Level of Care Code 05460 Initial Inpt Care Lvl 3 Diagnoses Palpitation R00.2 Hypokalemia E87.6 Hypophosphatemia E83.39 Hypomagnesemia E83.42 Lower extremity edema R60.0 Chronic pain G89.29 Chronic pain type: other chronic pain Hypertension I10 Hypertension type: unspecified Postsurgical hypothyroidism E89.0 Asthma, mild persistent J45.30 Asthma complication type: uncomplicated Fibromyalgia M79.7 DM type 2 (diabetes mellitus, type 2) E11.9 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 Diabetes mellitus complication status: without complication Allergic rhinitis J30.9 Allergic rhinitis trigger: unspecified Allergic rhinitis seasonality: unspecified (1) Chronic pain Chronic pain type: other chronic pain Qualified Code(s): G89.29 - Other chronic pain (2) Hypertension Hypertension type: unspecified Qualified Code(s): I10 - Essential (primary) hypertension (3) Asthma, mild persistent Asthma complication type: uncomplicated Qualified Code(s): J45.30 - Mild persistent asthma, uncomplicated (4) DM type 2 (diabetes mellitus, type 2) 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
[2020-04-24] MEDS ORDERED: GLUCAGON FOR INJ 1 MG VIAL SQ PRN (15:12)
[2020-04-24] MEDS ORDERED: CARBOHYDRATES FOR HYPOGLYCEMIA PO PRN (15:12)
[2020-04-24] MEDS ORDERED: GLUCOSE 10 TABS/TUBE PO PRN (15:12)
[2020-04-24] MEDS ORDERED: ONDANSETRON INJ 2 MG/ML 2 ML VIAL IV PRN (15:12)
[2020-04-24] MEDS ORDERED: GLUCOSE 40% GEL 15 GM TUBE PO PRN (15:12)
[2020-04-24] MEDS ORDERED: MoRPHine SULFATE 2 MG/ML CARP IV PRN (15:12)
[2020-04-24] MEDS ORDERED: ACETAMINOPHEN 325 MG TAB PO PRN (15:12)
[2020-04-24] MEDS ORDERED: DEXTROSE 50% 50 ML SYRINGE IV PRN (15:12)
[2020-04-24] MEDS ORDERED: ALBUTEROL HFA 8 GM INHALER INH PRN (15:30)
[2020-04-24] MEDS ORDERED: fentaNYL 50 MCG/HR TDSY TD SCH (16:00)
[2020-04-24] MEDS ORDERED: MAGNESIUM SULFATE / D5W 1 GM/100 ML BAG IV ONE (16:00)
[2020-04-24] MEDS: HYDROCODONE/ACETAMINOPHEN 10/325 TAB PO PRN ×2 (16:27→20:46)
[2020-04-24] MEDS ORDERED: SODIUM CHLORIDE 0.65% NA SOLN 45 ML (OCEAN) PRN (16:45)
[2020-04-24] MEDS ORDERED: NAPHAZOLIN/PHENIRAMIN OPH SOLN 75 DROPS/5 ML BTL OP PRN (16:45)
[2020-04-24] MEDS ORDERED: SYSTANE OP PRN (17:45)
[2020-04-24] MEDS: LIDOCAINE 5% 1 PATCH TD SCH (17:46)
[2020-04-24] MEDS: CHECK FENTANYL PATCH PLACEMENT SCH ×2 (17:46→23:53)
[2020-04-24] MEDS: TIZANIDINE HCL 4 MG TABLET PO SCH ×2 (17:48→22:27)
[2020-04-24] MEDS: INSULIN ASPART 100 UNITS/ML 3 ML PEN SC SCH ×2 (17:51→21:40)
[2020-04-24] MEDS ORDERED: SALINE PRN (18:00)
[2020-04-24] MEDS: FLUTICASONE FUROATE 200MCG 14 PUFFS/INHALER INH SCH (18:46)
--- NOTE | 2020-04-24 19:21 | Electrocardiogram Report ---
Test Reason : Blood Pressure : / mmHG Vent. Rate : 094 BPM Atrial Rate : 094 BPM P-R Int : 172 ms QRS Dur : 082 ms QT Int : 352 ms P-R-T Axes : 075 051 055 degrees QTc Int : 440 ms Normal sinus rhythm Possible Left atrial enlargement Nonspecific ST abnormality Abnormal ECG When compared with ECG of 07-APR-2016 09:40, No significant change was found Confirmed by Alex Garcia ([id number]) on 04/24/2020 7:21:07 PM Referred By: REFERRED SELF Confirmed By:Myles Garcia
[2020-04-24] MEDS ORDERED: ZOLPIDEM TARTRATE 10 MG TAB PO SCH (21:00)
[2020-04-24] MEDS ORDERED: CeleBREX 200 MG CAP PO SCH (21:00)
[2020-04-24 21:24] LABS: Appearance Urine Clear (Clear); Bacteria Urine Automated Negative (Negative); Bilirubin Urine Negative (Negative); Blood Urine Negative (Negative); Color Urine Yellow; Glucose Urine UA Negative (Negative); Ketones Urine Negative (Negative); Leukocyte Esterase Urine Negative (Negative); Nitrite Urine Negative (Negative); Protein Urine 1+ (Negative); RBC Urine Automated 0-4 /hpf (0-4); Specific Gravity Urine 1.016 (1.000-1.030); Urobilinogen Urine Negative (Negative); WBC Urine Automated 0 /hpf (0-5)
[2020-04-24] MEDS: INSULIN GLARGINE SOLOSTAR 100 UNITS/ML 3 ML PEN SC SCH (21:39)
[2020-04-24] MEDS: IPRATROPIUM BROMIDE SCH (21:41)
[2020-04-24] MEDS: guaiFENesin 600 MG TABCR PO SCH (21:44)
[2020-04-24] MEDS: CELECOXIB 100 MG CAP PO SCH (22:27)
[2020-04-25] MEDS: HYDROCODONE/ACETAMINOPHEN 10/325 TAB PO PRN ×4 (02:07→15:47)
[2020-04-25] MEDS ORDERED: LEVOTHYROXINE SODIUM 112 MCG TABLET PO SCH (06:30)
[2020-04-25] MEDS: TIZANIDINE HCL 4 MG TABLET PO SCH ×3 (06:33→13:42)
--- NOTE | 2020-04-25 06:40 | Communication Note ---
Date of Service: April 25, 2020 Note to day team provider, nursing notified me via qliq of patient being caught obviously taking own medications and then denied it on confrontation. She was caught putting tablet in mouth, unknown what medication was.
[2020-04-25] MEDS ORDERED: Nursing to Pharmacy Communication SCH (06:45)
[2020-04-25] MEDS: INSULIN GLARGINE SOLOSTAR 100 UNITS/ML 3 ML PEN SC SCH (08:16)
[2020-04-25] MEDS: guaiFENesin 600 MG TABCR PO SCH (08:16)
[2020-04-25] MEDS: INSULIN ASPART 100 UNITS/ML 3 ML PEN SC SCH ×2 (08:16→12:05)
[2020-04-25] MEDS: CHECK FENTANYL PATCH PLACEMENT SCH (08:17)
[2020-04-25] MEDS: CELECOXIB 100 MG CAP PO SCH (08:17)
[2020-04-25] MEDS: IPRATROPIUM BROMIDE SCH (08:18)
[2020-04-25] MEDS: FLUTICASONE FUROATE 200MCG 14 PUFFS/INHALER INH SCH (08:19)
[2020-04-25] MEDS: LIDOCAINE 5% 1 PATCH TD SCH (08:20)
--- NOTE | 2020-04-25 08:20 | Hospitalist Progress Note ---
Date of Service April 25, 2020 Assessment & Plan (1) Palpitation: Patient with episode of palpitations this AM. Was reported to be tachycardic during outpatient encounter. She denies CP, SOB, dizziness or LOC. EKG with NSR. Troponin negative. She has multiple electrolyte abnormalities wh ich could predispose to brief episodes of arrhythmia. -Cardiac monitoring -Replete electrolytes as below (2) Hypokalemia: K=3.3. Patient on diuretics at home. Was administered KPhos and KCl -Repeat labs in AM -Hold diuretics for now (3) Hypophosphatemia: PO4 o=2.1 -Patient administered K-Phos -Repeal level in AM (4) Hypomagnesemia: Mg low at 1.1 -Repleted -Repeat level in AM (5) Lower extremity edema: Patient with bilateral LE edema. Etiology uncertain. She does not appear to be volume overloaded. No evidence of liver or kidney abnormality. TSH within normal limits. Albumin normal at 4.2 -Hold Metolazone for now to allow for electrolyte repletion -Hold Spironolactone fo rnow -Check UA -Compression stockings as tolerated (6) Chronic pain: Patient with chronic pain, acutely worsened with her trip to the hospital -Continue home medication regimen, Fentanyl patch, Celebrex, Tizanidine -Lidoderm patch -Morphine PRN (7) Hypertension: Blood pressure elevated in setting of stress, pain and agitation. Labetalol given. Patine tis not on any antihypertensive agents at this time -Continue to monitor BP (8) Postsurgical hypothyroidism: Chronic. TSH WNL -Continue Synthroid (9) Asthma, mild persistent: Chronic. Stable. No SOB/cough/wheeze. Adequate oxygenation on room air -Continue Albuterol, Asmanex -Monitor (10) Fibromyalgia: Chronic -Pain control as above (11) DM type 2 (diabetes mellitus, type 2): Chronic -Hold Metformin -ISS, Lantus 5u BID -Goal blood sugar 100 - 140 (12) Allergic rhinitis: Chronic -Continue nasal sprays Flunisolide, Ipratropium -Continue Mucinex Chronic Suppressive Doxycycline for eye infections - 50mg po daily - Continue F/E/N - Heplock, electrolyte repletion and monitoring as above, CC diet as tolerated Ppx - Low risk for DVT, compression stockings as above Code - DNR/DNI per discussion with patient Dispo - Admission to medical floor with telemetry Admission and Anticipated Discharge Date Admission Date: April 24, 2020 Results & Data Results & Data ([facility]) Vital Signs (Past 12 Hours) Vital Signs Temp Pulse Resp BP Pulse Ox 04/25/20 07:21 98.4 F 80 16 149/82 H 96 04/24/20 23:30 98.4 F 71 18 113/65 99 PG Care Time/CCT Total # of Minutes Spent Total Time Spent with Patient: Total time spent is greater than 50% in coordination of care (as documented) at patient's floor/unit and/or counseling patient: Coding Diagnoses Palpitation R00.2 Hypokalemia E87.6 Hypophosphatemia E83.39 Hypomagnesemia E83.42 Lower extremity edema R60.0 Chronic pain G89.29 Chronic pain type: other chronic pain Hypertension I10 Hypertension type: unspecified Postsurgical hypothyroidism E89.0 Asthma, mild persistent J45.30 Asthma complication type: uncomplicated Fibromyalgia M79.7 DM type 2 (diabetes mellitus, type 2) E11.9 Diabetes mellitus correction insulin use: without transportation lead use Diabetes mellitus complication status: without complication Allergic rhinitis J30.9 Allergic rhinitis trigger: unspecified Allergic rhinitis seasonality: unspecified (1) Chronic pain Chronic pain type: other chronic pain Qualified Code(s): G89.29 - Other chronic pain (2) Hypertension Hypertension type: unspecified Qualified Code(s): I10 - Essential (primary) hypertension (3) Asthma, mild persistent Asthma complication type: uncomplicated Qualified Code(s): J45.30 - Mild persistent asthma, uncomplicated (4) DM type 2 (diabetes mellitus, type 2) Diabetes mellitus correction insulin use: without correction use Diabetes mellitus complication status: without complication Qualified Code(s): E11.9 - Type 2 diabetes mellitus without complications (5) Allergic rhinitis Allergic rhinitis trigger: unspecified Allergic rhinitis seasonality: unspecified Qualified Code(s): J30.9 - Allergic rhinitis, unspecified
[2020-04-25 08:47] LABS: Basophils # (auto) 0.03 K/uL (0-0.2); Basophils % (auto) 0.3 %; Eosinophils # (auto) 0.13 K/uL (0-0.5); Eosinophils % (auto) 1.1 %; Hematocrit (blood only) 39.4 % (37-47); Hemoglobin 13.7 g/dL (12.0-16.0); Immature Granulocytes # (auto) 0.06 K/uL (0.00-0.02); Immature Granulocytes % (auto) 0.5 %; Lymphocytes # (auto) 3.28 K/uL (1.2-3.4); Lymphocytes % (auto) 27.6 %; Mean Corpuscular Hemoglobin 30.4 pg (25-34); Mean Corpuscular Hgb Conc 34.8 g/dL (32-36); Mean Corpuscular Volume 87.4 fL (80-100); Mean Platelet Volume 9.2 fL (7.4-10.4); Monocytes # (auto) 0.85 K/uL (0.11-0.59); Monocytes % (auto) 7.2 %; Neutrophils # (auto) 7.53 K/uL (1.4-6.5); Neutrophils % (auto) 63.3 %; Platelet Count 342 K/uL (130-400); RDW Coefficient of Variation 14.1 % (11.5-14.5); RDW Standard Deviation 45.4 fL (36.4-46.3); Red Blood Count 4.51 M/uL (4.2-5.4); White Blood Count 11.88 K/uL (4.8-10.8)
[2020-04-25] MEDS ORDERED: DOXYCYCLINE HYCLATE 50 MG CAP PO SCH (09:00)
[2020-04-25] MEDS ORDERED: CHOLECALCIFEROL (VITAMIN D) 400 UNITS TABLET PO SCH (09:00)
[2020-04-25] MEDS ORDERED: FLUNISOLIDE SCH (09:00)
[2020-04-25] MEDS ORDERED: NON-FORMULARY MEDICATION (Coenzyme Q10 [Co Q-10] 50 MG) PO SCH (09:00)
[2020-04-25 09:27] LABS: BUN Creatinine Ratio 9.3 (10-20); Calcium 9.9 mg/dl (8.5-10.1); Creatinine Clr Calc Pharmacy 54.1 ml/min; Est GFR (African American) 71.6; Est GFR (Non-African American) 61.8; Magnesium 1.7 mg/dl (1.8-2.4)
[2020-04-25 09:32] LABS: Phosphorus 2.7 mg/dl (2.5-4.9)
[2020-04-25] MEDS ORDERED: POTASSIUM CHLORIDE 10 MEQ / 100ML WTR IV STA (09:40)
[2020-04-25] MEDS ORDERED: POTASSIUM CHLORIDE 20 MEQ TABCR PO SCH (09:45)
[2020-04-25] MEDS ORDERED: MAGNESIUM SULFATE / D5W 1 GM/100 ML BAG IV ONE (10:00)
[2020-04-25] MEDS: POTASSIUM CHLORIDE / WTR 10 MEQ/100 ML PLCT IV SCH ×3 (10:18→12:17)
--- NOTE | 2020-04-25 17:46 | Discharge Summary ---
Date of Service April 25, 2020 Admission HPI Per Admitting Provider Caity Garrett is a 74yo female presenting with one week of bilateral LE edema, palpitations at 04:30 this AM. Patient has longstanding history of ankle edema for which she takes diuretics. She noted a worsening of BL LE edema over the last week. She also reports occasional palpitations. She resides at [facility] with her . She was seen yesterday in the clinic and found to be tachycardic to 137 bpm. She was rechecked today and was still tachycardic at 127bpm therefore she was sent to the ER for additional workup. She has tried to place compression stockings at home, however, was unable to get them over her feet. She also reports that the compression causes a lot of muscular discomfort due to her Fibromyalgia. Patient reports being unable to sleep last night as she has run out of her Zolpidem. She experienced palpitations at 04:30 this AM which she thinks may have been secondary to stress. She denies CP/SOB/cough/abdominal pain/nausea/vomiting/diarrhea/constipation/dysuria. She is complaining of severe back pain and inability to get comfortable. On arrival to the ER she was found to be afebrile, hypertensive at 225/88 otherwise stable. NAD ER Course: Labetalol 10mg IV, Magnesium, KCL, KPhos Principal Diagnosis Hypokalemia Hypomagnesemia Symptomatic palpitations resolved Discharge Exam The patient appeared well Vital signs as documented. Lungs are clear to auscultation and appear unlabored Cardiac exam, Rhythm is regular.. No murmurs, rubs or gallops. Abdominal exam reveals normal bowel sounds, soft non tender, no masses Extremities are mildly edematous and both pedal pulses are normal. Neurologic exam is alert and oriented, no focal loss of strength or sensation Skin is without bruises or rashes Psychologically is without concerns for anxiety or depression Discharge Data Allergies Allergy/AdvReac Type Severity Reaction Status Date / Time Penicillins Allergy Unknown RASH,ITCH Verified 05/04/16 05:57 piroxicam Allergy Unknown PT USES Verified 05/04/16 05:57 CELEBREX AT HOME-RASH Sulfa (Sulfonamide Allergy Unknown RASH TO Verified 05/04/16 05:57 Antibiotics) SULFA DRUGS Cephalosporins AdvReac Unknown SUPRAX-GI Verified 05/04/16 05:57 UPSET levofloxacin AdvReac Unknown GI UPSET Verified 05/04/16 05:57 oxycodone AdvReac Unknown NAUSEA-MILD Verified 05/04/16 05:57 DISORIENTATION Consultations 04/24/20 11:39 ED Decision to Admit Stat Hospital Course (1) Palpitation: Patient with episode of palpitations this AM. Was reported to be tachycardic during outpatient encounter. She denies CP, SOB, dizziness or LOC. EKG with NSR. Troponin negative. She has multiple electrolyte abnormalities likely result of metolazone and spironolactone. I did discuss this personally with her outpatient primary care provider and we did agree to stop the metolazone with an outpatient lab check on 04/26 (2) Hypokalemia: Standard diuretics we did not increase home potassium supplementation for 30 liquid once a day to 40 mEq a day and stop her metolazone (3) Hypophosphatemia: Repleted (4) Hypomagnesemia: Repleted with an additional 1 g given on 10/26 (5) Lower extremity edema: Patient with bilateral LE edema. Etiology uncertain. She does not appear to be volume overloaded. No evidence of liver or kidney abnormality. TSH within normal limits. Albumin normal after speaking to her primary care provider her lower extremity edema is longstanding and felt not to be secondary to heart failure reduced ejection fraction subsequently we will hold her metolazone but continue spironolactone with close outpatient follow-up (6) Chronic pain: Patient with chronic pain, acutely worsened with her trip to the hospital -Continue home medication regimen, Fentanyl patch, Celebrex, Tizanidine -Lidoderm patch -Morphine PRN Patient's chronic pain is returned to his usual state she will continue to follow with her usual outpatient regimen at discharge (7) Hypertension: Blood pressures improved with resolution of her pain (8) Postsurgical hypothyroidism: Chronic. TSH WNL -Continue Synthroid (9) Asthma, mild persistent: Chronic. Stable. Not in exacerbation at this time -Continue Albuterol, Asmanex -Monitor (10) Fibromyalgia: Chronic -Pain control as above (11) DM type 2 (diabetes mellitus, type 2): Will resume home medications avoiding insulin use at this time (12) Allergic rhinitis: Chronic -Continue nasal sprays Flunisolide, Ipratropium -Continue Mucinex Chronic Suppressive Doxycycline for eye infections - 50mg po daily - Continue Code - DNR/DNI per discussion with patient Person call to arrange outpatient laboratory work to follow-up on 04/26/2020 Total Time Total Time Spent Total Time Spent (In Minutes): It required greater than 30 minutes to prepare this patient for discharge Discharge Plan Discharge Items Patient Disposition: Home - Self-Care Reason For Visit: PALPITATIONS,ELECTROLYTE ABNORMALITY Discharge Diagnosis: low potassium low magnesium Activity: Resume your previous activity Non-emergency contact: Primary Care Provider Call non-emergency contact if: you have any medication questions and your symptoms worsen Follow-up/Referrals: Julio César Mukherjee MD [Primary Care Provider] - Diet: Regular Ambulatory Orders: Basic Metabolic Panel (Routine) Timeframe: 1 Day Location: Determined by Patient Ordered By: Wenceslao Arriaza Magnesium (Routine) Timeframe: 1 Day Location: Determined by Patient Ordered By: Wenceslao Arriaza Addtl Attending Provider Instructions: please stop your metolazone as instructed by Dr uMkherjee please have your labs checked 04/[address] Mukherjee decides in the future please have Dr Mukherjee eval your vitamins and maybe consider a multiple vitamin with magnesium for the future Pending Studies at Discharge: No Stand-Alone Forms: My BNI Video, Smoking Cessation Medications and DC Order Prescriptions: Continued celecoxib [Celebrex] 200 mg capsule 200 mg PO BID RF: 0 metformin 500 mg Tablet 1,000 mg PO BID RF: 0 fentanyl [Duragesic] 50 mcg/hr Patch 72 Hour 1 patch TRANSDERMAL Q72H RF: 0 tizanidine [Zanaflex] 4 mg Tablet 4 mg PO QID RF: 0 spironolactone [Aldactone] 100 mg Tablet 100 mg PO DAILY RF: 0 doxycycline hyclate 50 mg Capsule 50 mg PO DAILY RF: 0 coenzyme Q10 [Co Q-10] 50 mg Capsule 50 mg PO DAILY RF: 0 ascorbic acid (vitamin C) [Vitamin C] 500 mg Tablet 500 mg PO DAILY RF: 0 flunisolide 25 mcg (0.025 %) [place],Non-Aerosol 1 spray INTRANASAL DAILY RF: 0 vitamin B complex Tablet 1 tab PO DAILY RF: 0 albuterol sulfate [ProAir HFA] 90 mcg/actuation Hfa Aerosol Inhaler 2 puff INHALATION DIRECTED RF: 0 ipratropium bromide 0.03 % [place],Non-Aerosol 2 spray INTRANASAL UD RF: 0 levothyroxine [Synthroid] 112 mcg Tablet 112 mcg PO DAILY RF: 0 cholecalciferol (vitamin D3) [Vitamin D3] 10 mcg (400 unit) Capsule 10 mcg PO DAILY RF: 0 Centrum Silver 0.4-300-250 mg-mcg-mcg Tablet 1 tab PO DAILY RF: 0 Asmanex Twisthaler 220 mcg/ actuation (60) aerosol powdr breath activated 2 inh INHALATION DAILY RF: 0 zolpidem 12.5 mg Tablet,Ext Release Multiphase 12.5 mg PO DAILY RF: 0 omega 5-xro-wye-fish oil 1,000 mg (120 mg-180 mg) Capsule 1 cap PO TID RF: 0 guaifenesin [Mucinex] 600 mg Tablet Extended Release 12hr 600 mg PO BID RF: 0 Changed potassium chloride [Klor-Con 10] 10 mEq Tablet Extended Release 20 meq PO BID Qty: 120 RF: 0 Discontinued metolazone 2.5 mg Tablet 2.5 mg PO DAILY RF: 0 Discharge Orders: Discharge Order (Routine); Ordered 04/25/20 Ordered By: Wenceslao Arriaza Admission Data Admit Date/Time: 04/24/20 13:01 Attending Provider: Wenceslao Arriaza Admit Provider: Aaliyah Mcnair Primary Care Provider: Julio César Mukherjee Other Providers: Ari Nice Other Interventions: Discharge Summary Assessment (RN) Last Done: 04/25/20 15:30 DC Date/Time DO NOT enter until pt leaves facility: 04/25/20 16:20 Coding Level of Care Code D/C Day Management >30 mins Diagnoses Palpitation R00.2 Hypokalemia E87.6 Hypophosphatemia E83.39 Hypomagnesemia E83.42 Lower extremity edema R60.0 Chronic pain G89.29 Chronic pain type: other chronic pain Hypertension I10 Hypertension type: unspecified Postsurgical hypothyroidism E89.0 Asthma, mild persistent J45.30 Asthma complication type: uncomplicated Fibromyalgia M79.7 DM type 2 (diabetes mellitus, type 2) E11.9 Diabetes mellitus mcfp insulin use: without mcfp use Diabetes mellitus complication status: without complication Allergic rhinitis J30.9 Allergic rhinitis trigger: unspecified Allergic rhinitis seasonality: unspecified
== END 2020-04-25 16:20 | disposition home or self-care (01) | DRG 641 ==
LOC: ED 10:08 → SUATTDRO 13:01 → 2W 13:01

== ENCOUNTER 2025-03-28 06:22 | Observation (INO) ==
--- NOTE | 2025-03-16 14:56 | PAT Medication Instructions ---
Medication Instructions Date of Service March 16, 2025 Home Medications ascorbic acid (vitamin C) 500 mg tablet (Vitamin C) 500 mg PO DAILY coenzyme Q10 50 mg capsule (Co Q-10) 60 mg PO DAILY guaifenesin 600 mg tablet, extended release 12 hr (Mucinex) 600 mg PO BID metformin 500 mg tablet 1,000 mg PO BID hczggxij-eag-kbdju acid 0.4 mg-lycopene 300 mcg-lutein 250 mcg tablet (Centrum Silver) 1 tab PO DAILY omega 7-bxe-lwz-fish oil 1,000 mg (120 mg-180 mg) capsule 1 cap PO BID spironolactone 100 mg tablet (Aldactone) 100 mg PO QAM tizanidine 4 mg tablet (Zanaflex) 4 mg PO QID vitamin B complex 1 tab PO DAILY zolpidem 12.5 mg tablet,extended release,multiphase 12.5 mg PO HS magnesium 250 mg tablet 250 mg PO TID albuterol sulfate 90 mcg/actuation aerosol inhaler (ProAir HFA) 2 puff inhalation DIRECTED PRN Shortness Of Breath Or Wheezing celecoxib 200 mg capsule (Celebrex) 100 mg PO BID cholecalciferol (vitamin D3) 10 mcg (400 unit) capsule (Vitamin D3) 10 mcg PO BID doxycycline hyclate 50 mg capsule 50 mg PO BID hydrocodone 10 mg-acetaminophen 325 mg tablet 1 tab PO Q4H ipratropium bromide 21 mcg (0.03 %) nasal spray 2 spray intranasal UD PRN Congestion nortriptyline 10 mg capsule 10 mg PO BID potassium chloride 10 mEq tablet,extended release (Klor-Con) 10 meq PO BID propylene glycol (PF) 0.6 % eye drops (Systane Complete PF) 2 drp ophthalmic (eye) QID sodium chloride 0.65 % nasal spray aerosol (Saline Nasal Mist) 1 spray intranasal BID PRN Congestion vit C 250 mg-vit E 90 mg-zinc 40 mg-copper 1 fd-ivbeau-xztisa capsule (PreserVision AREDS-2) 1 tab PO BID calcium 600 mg (as carbonate)-vit D3 20 mcg (800 unit) chewable tablet (Caltrate plus D) 1 tab PO DAILY fluticasone propionate 50 mcg/actuation nasal spray,suspension 1 - 2 spray intranasal BID bumetanide 1 mg tablet 1 mg PO DAILY dulaglutide 3 mg/0.5 mL subcutaneous pen injector (Trulicity) 3 mg subcut WK levothyroxine 200 mcg tablet (Synthroid) 200 mcg PO QAM metoprolol succinate 25 mg tablet,extended release 24 hr 37.5 mg PO BID mometasone 220 mcg/actuation(120 doses)breath activated powder inhaler (Asmanex Twisthaler) 2 inh inhalation QAM vitamin B12 1 mg-folic acid 0.8 mg tablet 1 tab PO DAILY Take morning of surgery With a small sip of water, OTHERWISE NOTHING TO EAT OR DRINK AFTER MIDNIGHT: Insulin Dependent Diabetic Patients * Test your blood sugar the morning of surgery * If Blood Sugar is GREATER THAN 150, take HALF of your regular dose of: * If Blood Sugar is LESS THAN 150, DO NOT TAKE ANY: Other Notes If you have any questions please call us at [phone] or [phone] or [phone] or [phone]
--- NOTE | 2025-03-16 14:58 | PAT Medication Instructions ---
Medication Instructions Date of Service March 16, 2025 Home Medications ascorbic acid (vitamin C) 500 mg tablet (Vitamin C) 500 mg PO DAILY coenzyme Q10 50 mg capsule (Co Q-10) 60 mg PO DAILY guaifenesin 600 mg tablet, extended release 12 hr (Mucinex) 600 mg PO BID metformin 500 mg tablet 1,000 mg PO BID bzdogyab-hve-vbqnz acid 0.4 mg-lycopene 300 mcg-lutein 250 mcg tablet (Centrum Silver) 1 tab PO DAILY omega 7-hmo-mqf-fish oil 1,000 mg (120 mg-180 mg) capsule 1 cap PO BID spironolactone 100 mg tablet (Aldactone) 100 mg PO QAM tizanidine 4 mg tablet (Zanaflex) 4 mg PO QID vitamin B complex 1 tab PO DAILY zolpidem 12.5 mg tablet,extended release,multiphase 12.5 mg PO HS magnesium 250 mg tablet 250 mg PO TID albuterol sulfate 90 mcg/actuation aerosol inhaler (ProAir HFA) 2 puff inhalation DIRECTED PRN celecoxib 200 mg capsule (Celebrex) 100 mg PO BID cholecalciferol (vitamin D3) 10 mcg (400 unit) capsule (Vitamin D3) 10 mcg PO BID doxycycline hyclate 50 mg capsule 50 mg PO BID hydrocodone 10 mg-acetaminophen 325 mg tablet 1 tab PO Q4H ipratropium bromide 21 mcg (0.03 %) nasal spray 2 spray intranasal UD PRN nortriptyline 10 mg capsule 10 mg PO BID potassium chloride 10 mEq tablet,extended release (Klor-Con) 10 meq PO BID propylene glycol (PF) 0.6 % eye drops (Systane Complete PF) 2 drp ophthalmic (eye) QID sodium chloride 0.65 % nasal spray aerosol (Saline Nasal Mist) 1 spray intranasal BID PRN vit C 250 mg-vit E 90 mg-zinc 40 mg-copper 1 lq-krappa-tsblmo capsule (PreserVision AREDS-2) 1 tab PO BID calcium 600 mg (as carbonate)-vit D3 20 mcg (800 unit) chewable tablet (Caltrate plus D) 1 tab PO DAILY fluticasone propionate 50 mcg/actuation nasal spray,suspension 1 - 2 spray intranasal BID bumetanide 1 mg tablet 1 mg PO DAILY dulaglutide 3 mg/0.5 mL subcutaneous pen injector (Trulicity) 3 mg subcut WK levothyroxine 200 mcg tablet (Synthroid) 200 mcg PO QAM metoprolol succinate 25 mg tablet,extended release 24 hr 37.5 mg PO BID mometasone 220 mcg/actuation(120 doses)breath activated powder inhaler (Asmanex Twisthaler) 2 inh inhalation QAM vitamin B12 1 mg-folic acid 0.8 mg tablet 1 tab PO DAILY STOP 7 days before surgery dulaglutide 3 mg/0.5 mL subcutaneous pen injector (Trulicity) 3 mg subcut WK Continue as directed albuterol sulfate 90 mcg/actuation aerosol inhaler (ProAir HFA) 2 puff inhalation DIRECTED PRN(use if needed; please bring with you to hospital day of surgery if possible) ipratropium bromide 21 mcg (0.03 %) nasal spray 2 spray intranasal UD PRN(if needed) ASK your surgeon for instructions celecoxib 200 mg capsule (Celebrex) 100 mg PO BID STOP taking 2 weeks before surgery (or as soon as possible if surgery is within 2 weeks) coenzyme Q10 50 mg capsule (Co Q-10) 60 mg PO DAILY omega 1-cky-nci-fish oil 1,000 mg (120 mg-180 mg) capsule 1 cap PO BID vit C 250 mg-vit E 90 mg-zinc 40 mg-copper 1 sz-dtagjs-jhcoav capsule (PreserVision AREDS-2) 1 tab PO BID DO NOT take the morning of surgery ascorbic acid (vitamin C) 500 mg tablet (Vitamin C) 500 mg PO DAILY guaifenesin 600 mg tablet, extended release 12 hr (Mucinex) 600 mg PO BID metformin 500 mg tablet 1,000 mg PO BID vhivbxmj-fer-srngx acid 0.4 mg-lycopene 300 mcg-lutein 250 mcg tablet (Centrum Silver) 1 tab PO DAILY spironolactone 100 mg tablet (Aldactone) 100 mg PO QAM vitamin B complex 1 tab PO DAILY magnesium 250 mg tablet 250 mg PO TID cholecalciferol (vitamin D3) 10 mcg (400 unit) capsule (Vitamin D3) 10 mcg PO BID potassium chloride 10 mEq tablet,extended release (Klor-Con) 10 meq PO BID calcium 600 mg (as carbonate)-vit D3 20 mcg (800 unit) chewable tablet (Caltrate plus D) 1 tab PO DAILY bumetanide 1 mg tablet 1 mg PO DAILY vitamin B12 1 mg-folic acid 0.8 mg tablet 1 tab PO DAILY Take morning of surgery With a small sip of water, OTHERWISE NOTHING TO EAT OR DRINK AFTER MIDNIGHT: tizanidine 4 mg tablet (Zanaflex) 4 mg PO QID doxycycline hyclate 50 mg capsule 50 mg PO BID hydrocodone 10 mg-acetaminophen 325 mg tablet 1 tab PO Q4H nortriptyline 10 mg capsule 10 mg PO BID sodium chloride 0.65 % nasal spray aerosol (Saline Nasal Mist) 1 spray intranasal BID PRN(if needed) propylene glycol (PF) 0.6 % eye drops (Systane Complete PF) 2 drp ophthalmic (eye) QID fluticasone propionate 50 mcg/actuation nasal spray,suspension 1 - 2 spray intranasal BID levothyroxine 200 mcg tablet (Synthroid) 200 mcg PO QAM metoprolol succinate 25 mg tablet,extended release 24 hr 37.5 mg PO BID mometasone 220 mcg/actuation(120 doses)breath activated powder inhaler (Asmanex Twisthaler) 2 inh inhalation QAM Take evening before surgery guaifenesin 600 mg tablet, extended release 12 hr (Mucinex) 600 mg PO BID metformin 500 mg tablet 1,000 mg PO BID tizanidine 4 mg tablet (Zanaflex) 4 mg PO QID zolpidem 12.5 mg tablet,extended release,multiphase 12.5 mg PO HS magnesium 250 mg tablet 250 mg PO TID cholecalciferol (vitamin D3) 10 mcg (400 unit) capsule (Vitamin D3) 10 mcg PO BID doxycycline hyclate 50 mg capsule 50 mg PO BID hydrocodone 10 mg-acetaminophen 325 mg tablet 1 tab PO Q4H nortriptyline 10 mg capsule 10 mg PO BID potassium chloride 10 mEq tablet,extended release (Klor-Con) 10 meq PO BID sodium chloride 0.65 % nasal spray aerosol (Saline Nasal Mist) 1 spray intranasal BID PRN(if needed) propylene glycol (PF) 0.6 % eye drops (Systane Complete PF) 2 drp ophthalmic (eye) QID fluticasone propionate 50 mcg/actuation nasal spray,suspension 1 - 2 spray intranasal BID metoprolol succinate 25 mg tablet,extended release 24 hr 37.5 mg PO BID Other Notes If you have any questions please call us at [phone] or [phone] or [phone] or [phone]
--- NOTE | 2025-03-19 14:20 | Anesthesiology Consultation ---
Date of Service March 19, 2025 Assessment & Plan (1) Encounter for pre-operative examination: - Check BSG DOS - Infectious disease screening: Per assessment on 03/19/25- No known recent infectious disease contacts or current infectious disease symptoms. - GLP-1 medication instructions: Patient informed by PAT to stop 7 days prior to surgery- voiced understanding. DOS 03/28. Advised last dose to be 03/21. - Patient acceptable risk for surgery pending surgeon-ordered cardiology ([facility] Alves cardio, appt 03/26) and PCP (Dr. Mukherjee, appt 03/26) preop evaluations. Chart Review Chart Review: Patient seen in Pre Admission Testing Teaching & Discussion Pre-Anesthesia Teaching/Discussion Notes: Instructed NPO after midnight before surgery,except medications with 15 cc of water. Medication instructions provided according to the PAT guidelines. History Surgery Operation Date: 03/28/25 07:45 Proposed Procedures p C3-C4 Anterior Cervical Discectomy and Fusion with Spinal Cord Monitoring - Sam Herrera, Height/Weight Height: 5 ft 2 in Weight: 80.2 kg Allergies Allergy/AdvReac Type Severity Reaction Status Date / Time methadone Allergy Severe Blistering Verified 03/16/25 12:19 Penicillins Allergy Intermediate Rash, Verified 03/16/25 12:19 itching piroxicam Allergy Intermediate Rash Verified 03/16/25 12:19 ("uses celebrex at home") Cephalosporins AdvReac Intermediate Gastrointestinal Verified 03/16/25 12:19 Upset levofloxacin AdvReac Intermediate GI upset Verified 03/16/25 12:19 oxycodone AdvReac Intermediate Nausea, Verified 03/16/25 12:19 "Mild" disorientation Sulfa (Sulfonamide AdvReac Intermediate Gastrointestinal Verified 03/16/25 12:19 Antibiotics) Upset Medications Home Medications Medication Instructions Recorded Confirmed Last Taken ascorbic acid (vitamin C) 500 mg 500 mg PO DAILY 04/24/20 03/16/25 Unknown tablet (Vitamin C) coenzyme Q10 50 mg capsule (Co 60 mg PO DAILY 04/24/20 03/16/25 Unknown Q-10) guaifenesin 600 mg tablet, 600 mg PO BID 04/24/20 03/16/25 Unknown extended release 12 hr (Mucinex) metformin 500 mg tablet 1,000 mg PO BID 04/24/20 03/16/25 Unknown tmdzgsnc-nux-nmmyx acid 0.4 1 tab PO DAILY 04/24/20 03/16/25 Unknown mg-lycopene 300 mcg-lutein 250 mcg tablet (Centrum Silver) omega 2-jue-fyv-fish oil 1,000 mg 1 cap PO BID 04/24/20 03/16/25 Unknown (120 mg-180 mg) capsule spironolactone 100 mg tablet 100 mg PO QAM 04/24/20 03/16/25 Unknown (Aldactone) tizanidine 4 mg tablet (Zanaflex) 4 mg PO QID 04/24/20 03/16/25 Unknown vitamin B complex 1 tab PO DAILY 04/24/20 03/16/25 Unknown zolpidem 12.5 mg tablet,extended 12.5 mg PO HS 04/24/20 03/16/25 Unknown release,multiphase magnesium 250 mg tablet 250 mg PO TID 07/21/22 03/16/25 Unknown albuterol sulfate 90 mcg/actuation 2 puff inhalation DIRECTED PRN 09/30/22 03/16/25 Unknown aerosol inhaler (ProAir HFA) Shortness Of Breath Or Wheezing celecoxib 200 mg capsule (Celebrex) 100 mg PO BID 09/30/22 03/16/25 Unknown cholecalciferol (vitamin D3) 10 10 mcg PO BID 09/30/22 03/16/25 Unknown mcg (400 unit) capsule (Vitamin D3) doxycycline hyclate 50 mg capsule 50 mg PO BID 09/30/22 03/16/25 Unknown hydrocodone 10 mg-acetaminophen 1 tab PO Q4H 09/30/22 03/16/25 Unknown 325 mg tablet ipratropium bromide 21 mcg (0.03 2 spray intranasal UD PRN 09/30/22 03/16/25 Unknown %) nasal spray Congestion nortriptyline 10 mg capsule 10 mg PO BID 09/30/22 03/16/25 Unknown potassium chloride 10 mEq 10 meq PO BID 09/30/22 03/16/25 Unknown tablet,extended release (Klor-Con) propylene glycol (PF) 0.6 % eye 2 drp ophthalmic (eye) QID 09/30/22 03/16/25 Unknown drops (Systane Complete PF) sodium chloride 0.65 % nasal spray 1 spray intranasal BID PRN 09/30/22 03/16/25 Unknown aerosol (Saline Nasal Mist) Congestion vit C 250 mg-vit E 90 mg-zinc 40 1 tab PO BID 09/30/22 03/16/25 Unknown mg-copper 1 [id number]-facxbf capsule (PreserVision AREDS-2) calcium 600 mg (as carbonate)-vit 1 tab PO DAILY 03/24/24 03/16/25 Unknown D3 20 mcg (800 unit) chewable tablet (Caltrate plus D) fluticasone propionate 50 1 - 2 spray intranasal BID 03/24/24 03/16/25 Unknown mcg/actuation nasal spray,suspension bumetanide 1 mg tablet 1 mg PO DAILY 03/16/25 03/16/25 Unknown dulaglutide 3 mg/0.5 mL 3 mg subcut WK 03/16/25 03/16/25 03/14/25 subcutaneous pen injector (Trulicity) levothyroxine 200 mcg tablet 200 mcg PO QAM 03/16/25 03/16/25 Unknown (Synthroid) metoprolol succinate 25 mg 37.5 mg PO BID 03/16/25 03/16/25 Unknown tablet,extended release 24 hr mometasone 220 mcg/actuation(120 2 inh inhalation QAM 03/16/25 03/16/25 Unknown doses)breath activated powder inhaler (Asmanex Twisthaler) vitamin B12 1 mg-folic acid 0.8 mg 1 tab PO DAILY 03/16/25 03/16/25 Unknown tablet Past Medical History Medical History Acquired lymphedema RLE > LLE Allergic rhinitis Asthma Cardiac murmur "Since childhood" Echo 01/2024: no significant heart valve disease Degenerative disc disease Diabetes mellitus, type 2 Dyslipidemia Fibromyalgia H/O hyperparathyroidism s/p parathyroidectomy Mansi's disease History of infection "When I was [age], I had a total lymph infection" per patient History of PCOS Hx of gastroesophageal reflux (GERD) Hypertension Hypothyroidism s/p thymus irradiation as child > complete right sided thyroidectomy and partial left sided thyroidectomy 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 enough to need transfusions" per patient Lower extremity edema Obesity Osteoarthritis Peripheral neuropathy Upper Bilateral Extremities/"fingers" Fuller syndrome Tachycardia Controlled with beta lucia Follows with [facility] Exercise / Class Metabolic Activity III < 4 Walking/Shop/Light housework (uses walker) Past Family History Family History Other Coronary heart disease Diabetes Past Surgical History Surgical History H/O section x1 History of arthroscopy Right knee History of carpal tunnel release R/L History of cataract surgery R/L History of colonoscopy History of lumbar fusion x2 T10-L3 Hardware Present History of lumpectomy of right breast Benign History of repair of rotator cuff Bilateral History of right breast biopsy History of thoracic surgery C7-T4 / T10-L3 C4-T1 Hardware Present T10-L3 Hardware Present History of tonsillectomy History of tooth extraction History of total knee replacement Right > spacer placed later for staph infection, and then revision History of total knee replacement Left History of wisdom tooth extraction Hx of cervical spine surgery Limited ROM C4-6 fusion "C1 and C2 are autofused" C4-T1 Hardware Present Hx of foot surgery left > toe procedures - hardware present Hx of parathyroidectomy 2 of the 4 removed Hx of thyroidectomy S/P lumbar discectomy Past Anesthesia History No Hx of Anesthesia Complications and No Family Hx of Anesthesia Complications History of PONV No Hx of PONV and No Hx of Motion Sickness Social History Smoking Status: Never smoker Do You Dip or Chew Tobacco: No Hx Alcohol Use: Yes Alcohol type: wine alcohol intake frequency: holidays/special occasions only (Rare) Hx Substance Use: No substance use type: does not use Review of Systems Patient denies chest pain, shortness of breath, fever, chills, cough, wheezing, palpitations. Physical Exam Vital Signs BP 112/68 P 88 TEMP 97.7 SP02 99%RA RESP 16 Physical Mildly decreased cervical extension range of motion. Full TMJ range of motion. TMD > 3.5 finger breaths Mallampati Score I Dentition: missing molar, + caps/crowns Lungs: clear throughout to auscultation Cardiac: regular rate and rhythm, no murmurs noted Spine: normal Carotid arteries: negative bruit Extremities: LE lymphedema Lab Results Anesthesia Preop Results Results Anesthesia Widget: WBC 10.12 K/ul (4.8-10.8) 03/19/25 Hgb 13.6 g/dl (12.0-16.0) 03/19/25 Hct 40.0 % (37.0-47.0) 03/19/25 Plt 371 K/uL (130-400) 03/19/25 Na 131 mmol/L (136-145) L 03/19/25 K 5.0 mmol/L (3.5-5.1) 03/19/25 Cl 93 mmol/L (98-107) L 03/19/25 CO2 30 mmol/L (21-32) 03/19/25 BUN 26 mg/dl (6-23) H 03/19/25 Creat 1.18 mg/dl (0.6-1.2) 03/19/25 Glucose Level 206 mg/dl (70-99(Fasting)) H 03/19/25 PT 10.4 Seconds (9.0-12.0) 03/19/25 PTT 32 Seconds (21-31) H 03/19/25 INR 1.0 (0.9-1.1) 03/19/25 HA1c 7.9 % (4.5-5.6) H 03/19/25 Urine Color Yellow 03/19/25 Urine Appearance Clear (Clear) 03/19/25 Urine pH 6.0 (4.5-7.5) 03/19/25 Urine Specific [place] 1.013 (1.000-1.030) 03/19/25 Urine Protein Negative (Negative) 03/19/25 Urine Glucose (UA) Negative (Negative) 03/19/25 Urine Ketones Negative (Negative) 03/19/25 Urine Blood Negative (Negative) 03/19/25 Urine Nitrite Negative (Negative) 03/19/25 Urine Bilirubin Negative (Negative) 03/19/25 Urine Urobilinogen Negative (Negative) 03/19/25 Urine Leukocyte Esterase Negative (Negative) 03/19/25 Blood Type A Positive 03/19/25 Antibody Screen NEGATIVE 03/19/25 Testing Laboratory Results Surgeon's office made aware of elevated glucose/A1C* Per chart review, chronic hyponatremia with fluctuating sodium levels, often in the low 130s; stable. At anesthesiologist discretion DOS if updated sodium level needed from their perspective* Electrocardiogram Date: 03/19/25 SR with first degree AVB at 89bpm. "Otherwise normal ECG" Chest X-Ray Date: 03/19/25 FINDINGS: Cardiomediastinal and hilar silhouettes are within normal limits. Atherosclerosis of the aorta. Partially imaged cervicothoracic spinal fusion hardware. Additional partially imaged thoracolumbar fusion hardware is noted. The bones appear grossly intact. Spondylitic spurring of the spine. Mild hyperinflation with diaphragmatic flattening. No pneumothorax, pleural effusion or airspace consolidation. IMPRESSION: No acute process. Echocardiogram Date: 01/20/24 LVEF 60-64%. LV wall motion is normal. Mildly increased concentric LV wall thickness. Grade 1 diastolic dysfunction. Mild AV sclerosis. Mildly calcified mitral valve leaflets. Mild mitral annular calcification.
[2025-03-28] MEDS ORDERED: LIDOCAINE 2% 2 ML VIAL/AMP(20MG/ML) INFIL ONE (07:09)
[2025-03-28] MEDS ORDERED: ROCURONIUM BROMIDE 10 MG/ML 5 ML VIAL IV ONE (07:09)
[2025-03-28] MEDS ORDERED: ONDANSETRON INJ 2 MG/ML 2 ML VIAL ONE (07:09)
[2025-03-28] MEDS ORDERED: DEXAMETHASONE SOD INJ 4 MG/ML VIAL ONE (07:09)
[2025-03-28] MEDS ORDERED: MIDAZOLAM HCL 1 MG/ML 2ML VIAL ONE (07:09)
[2025-03-28] MEDS ORDERED: GLYCOPYRROLATE 0.2 MG/ML VIAL ONE (07:09)
[2025-03-28] MEDS ORDERED: PROPOFOL IV EMULSION 10 MG/ML 20 ML VIAL IV ONE (07:09)
[2025-03-28] MEDS ORDERED: SUGAMMADEX SODIUM 200 MG/2 ML VIAL IV ONE (07:10)
[2025-03-28] MEDS ORDERED: fentaNYL citrate PF 100 MCG/2 ML VIAL ONE (07:10)
[2025-03-28] MEDS: VANCOMYCIN HCL 1,250 MG in SODIUM CHLORIDE 0.9% 250 ML IV SCH (07:17)
[2025-03-28] MEDS: LR 15ML/HR IV SCH (07:19)
[2025-03-28] MEDS: CeleBREX 200 MG CAP PO SCH (07:19)
[2025-03-28] MEDS: GABAPENTIN 300 MG CAP PO SCH (07:19)
[2025-03-28] MEDS: ACETAMINOPHEN 500 MG TAB PO SCH (07:19)
[2025-03-28] MEDS ORDERED: ATROPINE SULFATE 0.1 MG/ML 10ML SYR IV PRN (07:22)
[2025-03-28] MEDS ORDERED: ePHEDrine sulfate 50 MG/ML AMP IV PRN (07:22)
[2025-03-28] MEDS ORDERED: PROMETHAZINE HCL 6.25 MG in SODIUM CHLORIDE 0.9% 50 ML IV PRN (07:22)
--- NOTE | 2025-03-28 07:22 | Anesthesiology Consultation ---
Date of Service March 28, 2025 Assessment & Plan ASA ASA3 Proposed Anesthesia Anesthesia Type: General Risk / Benefits Reviewed With: PT / POA / Parent / Guardian, Accepts Plan and Informed Consent Obtained History Surgery Operation Date: 03/28/25 07:45 Proposed Procedures p C3-C4 Anterior Cervical Discectomy and Fusion, Spinal Cord Monitoring - Sam Herrera, Height/Weight Height: 5 ft 2 in Weight: 77.6 kg Allergies Allergy/AdvReac Type Severity Reaction Status Date / Time methadone Allergy Severe Blistering Verified 03/16/25 12:19 Penicillins Allergy Intermediate Rash, Verified 03/16/25 12:19 itching piroxicam Allergy Intermediate Rash Verified 03/16/25 12:19 ("uses celebrex at home") Cephalosporins AdvReac Intermediate Gastrointestinal Verified 03/16/25 12:19 Upset levofloxacin AdvReac Intermediate GI upset Verified 03/16/25 12:19 oxycodone AdvReac Intermediate Nausea, Verified 03/16/25 12:19 "Mild" disorientation Sulfa (Sulfonamide AdvReac Intermediate Gastrointestinal Verified 03/16/25 12:19 Antibiotics) Upset Medications Home Medications Medication Instructions Recorded Confirmed Last Taken ascorbic acid (vitamin C) 500 mg 500 mg PO DAILY 04/24/20 03/16/25 Unknown tablet (Vitamin C) coenzyme Q10 50 mg capsule (Co 60 mg PO DAILY 04/24/20 03/16/25 Unknown Q-10) guaifenesin 600 mg tablet, 600 mg PO BID 04/24/20 03/16/25 Unknown extended release 12 hr (Mucinex) metformin 500 mg tablet 1,000 mg PO BID 04/24/20 03/16/25 Unknown urnwgzcq-lnb-hhafr acid 0.4 1 tab PO DAILY 04/24/20 03/16/25 Unknown mg-lycopene 300 mcg-lutein 250 mcg tablet (Centrum Silver) omega 6-pjm-xoh-fish oil 1,000 mg 1 cap PO BID 04/24/20 03/22/25 Unknown (120 mg-180 mg) capsule spironolactone 100 mg tablet 100 mg PO QAM 04/24/20 03/16/25 Unknown (Aldactone) tizanidine 4 mg tablet (Zanaflex) 4 mg PO QID 04/24/20 03/16/25 Unknown vitamin B complex 1 tab PO DAILY 04/24/20 03/16/25 Unknown zolpidem 12.5 mg tablet,extended 12.5 mg PO HS 04/24/20 03/16/25 Unknown release,multiphase magnesium 250 mg tablet 250 mg PO TID 07/21/22 03/16/25 Unknown celecoxib 200 mg capsule (Celebrex) 100 mg PO BID 09/30/22 03/16/25 Unknown cholecalciferol (vitamin D3) 10 10 mcg PO BID 09/30/22 03/16/25 Unknown mcg (400 unit) capsule (Vitamin D3) doxycycline hyclate 50 mg capsule 50 mg PO BID 09/30/22 03/16/25 Unknown hydrocodone 10 mg-acetaminophen 1 tab PO Q4H 09/30/22 03/16/25 Unknown 325 mg tablet ipratropium bromide 21 mcg (0.03 2 spray intranasal UD PRN 09/30/22 03/16/25 Unknown %) nasal spray Congestion nortriptyline 10 mg capsule 10 mg PO BID 09/30/22 03/16/25 Unknown potassium chloride 10 mEq 10 meq PO BID 09/30/22 03/16/25 Unknown tablet,extended release (Klor-Con) propylene glycol (PF) 0.6 % eye 2 drp ophthalmic (eye) QID 09/30/22 03/16/25 Unknown drops (Systane Complete PF) sodium chloride 0.65 % nasal spray 1 spray intranasal BID PRN 09/30/22 03/16/25 Unknown aerosol (Saline Nasal Mist) Congestion vit C 250 mg-vit E 90 mg-zinc 40 1 tab PO BID 09/30/22 03/16/25 Unknown mg-copper 1 ve-pqvxxq-wdodsy capsule (PreserVision AREDS-2) calcium 600 mg (as carbonate)-vit 1 tab PO DAILY 03/24/24 03/16/25 Unknown D3 20 mcg (800 unit) chewable tablet (Caltrate plus D) fluticasone propionate 50 1 - 2 spray intranasal BID 03/24/24 03/16/25 Unknown mcg/actuation nasal spray,suspension bumetanide 1 mg tablet 1 mg PO DIRECTED 03/16/25 03/22/25 Unknown dulaglutide 3 mg/0.5 mL 3 mg subcut WK 03/16/25 03/16/25 03/14/25 subcutaneous pen injector (Trulicity) levothyroxine 200 mcg tablet 200 mcg PO QAM 03/16/25 03/16/25 Unknown (Synthroid) metoprolol succinate 25 mg 37.5 mg PO BID 03/16/25 03/16/25 Unknown tablet,extended release 24 hr mometasone 220 mcg/actuation(120 2 inh inhalation QAM 03/16/25 03/16/25 Unknown doses)breath activated powder inhaler (Asmanex Twisthaler) vitamin B12 1 mg-folic acid 0.8 mg 1 tab PO DAILY 03/16/25 03/16/25 Unknown tablet Active Medications Generic Name Dose Route Start Last Admin Trade Name Freq PRN Reason Stop Dose Admin Acetaminophen 1,000 mg 03/28/25 06:00 03/28/25 07:19 Acetaminophen 500 Mg Tab PO 03/28/25 18:00 1,000 mg PREOP RENA Administration Celecoxib 200 mg 03/28/25 06:00 03/28/25 07:19 Celebrex 200 Mg Cap PO 03/28/25 18:00 200 mg PREOP RENA Administration Gabapentin 300 mg 03/28/25 06:00 03/28/25 07:19 Gabapentin 300 Mg Cap PO 03/28/25 18:00 300 mg PREOP RENA Administration Vancomycin HCl 1,250 mg/ 275 mls @ 200 mls/hr 03/28/25 06:00 03/28/25 07:17 Sodium Chloride IV 03/28/25 18:00 200 mls/hr PREOP RENA Administration Lactated Ringer's 1,000 mls @ 15 mls/hr 03/28/25 06:00 03/28/25 07:19 Lr IV 03/29/25 05:59 15 mls/hr .Q24H RENA Administration NPO Date Last Intake of Fluids: 03/27/25 Time Last Intake of Fluids: 23:45 Last Intake of Fluids Comment: sips with 18 AM meds Date Last Intake of Solids: 03/27/25 Time Last Intake of Solids: 23:45 Past Medical History Medical History Acquired lymphedema RLE > LLE Allergic rhinitis Asthma Cardiac murmur "Since childhood" Echo 01/2024: no significant heart valve disease Degenerative disc disease Diabetes mellitus, type 2 Dyslipidemia Fibromyalgia H/O hyperparathyroidism s/p parathyroidectomy Mansi's disease History of infection "When I was [age], I had a total lymph infection" per patient History of PCOS Hx of gastroesophageal reflux (GERD) Hypertension Hypothyroidism s/p thymus irradiation as child > complete right sided thyroidectomy and partial left sided thyroidectomy 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 enough to need transfusions" per patient Lower extremity edema Obesity Osteoarthritis Peripheral neuropathy Upper Bilateral Extremities/"fingers" Fuller syndrome Tachycardia Controlled with beta lucia Follows with [facility] cardio Exercise / Class Metabolic Activity III < 4 Walking/Shop/Light housework (uses walker) Past Family History Family History Other Coronary heart disease Diabetes Past Surgical History Surgical History H/O section x1 History of arthroscopy Right knee History of carpal tunnel release R/L History of cataract surgery R/L History of colonoscopy History of lumbar fusion x2 T10-L3 Hardware Present History of lumpectomy of right breast Benign History of repair of rotator cuff Bilateral History of right breast biopsy History of thoracic surgery C7-T4 / T10-L3 C4-T1 Hardware Present T10-L3 Hardware Present History of tonsillectomy History of tooth extraction History of total knee replacement Right > spacer placed later for staph infection, and then revision History of total knee replacement Left History of wisdom tooth extraction Hx of cervical spine surgery Limited ROM C4-6 fusion "C1 and C2 are autofused" C4-T1 Hardware Present Hx of foot surgery left > toe procedures - hardware present Hx of parathyroidectomy 2 of the 4 removed Hx of thyroidectomy S/P lumbar discectomy Past Anesthesia History No Hx of Anesthesia Complications and No Family Hx of Anesthesia Complications History of PONV No Hx of PONV and No Hx of Motion Sickness Social History Smoking Status: Never smoker Do You Dip or Chew Tobacco: No Hx Alcohol Use: Yes Alcohol type: wine alcohol intake frequency: holidays/special occasions only (Rare) Hx Substance Use: No substance use type: does not use Physical Exam Constitutional no acute distress ENMT Mouth: + small oral opening; no dentition abnormality Thyromental Distance: > or= 3.5 Finger Breadths Mallampati Class: III Neck normal visual inspection Respiratory normal respiratory effort; no respiratory distress Auscultation: lungs clear to auscultation bilaterally Cardiovascular Rate/Rhythm: regular rate and regular rhythm Heart Sounds: no murmur Musculoskeletal Spine: normal cervical ROM Psychiatric Orientation: alert and oriented x 3 Testing Laboratory Results 03/28/25 06:47 POC Glucose 237 H Electrocardiogram Date: 03/19/25 SR with first degree AVB at 89bpm. "Otherwise normal ECG" Chest X-Ray Date: 03/19/25 FINDINGS: Cardiomediastinal and hilar silhouettes are within normal limits. Atherosclerosis of the aorta. Partially imaged cervicothoracic spinal fusion hardware. Additional partially imaged thoracolumbar fusion hardware is noted. The bones appear grossly intact. Spondylitic spurring of the spine. Mild hyperinflation with diaphragmatic flattening. No pneumothorax, pleural effusion or airspace consolidation. IMPRESSION: No acute process. Echocardiogram Date: 01/20/24 LVEF 60-64%. LV wall motion is normal. Mildly increased concentric LV wall thickness. Grade 1 diastolic dysfunction. Mild AV sclerosis. Mildly calcified mitral valve leaflets. Mild mitral annular calcification. Day of Procedure Evaluation. Date of Surgery March 28, 2025 Height/Weight Height: 5 ft 2 in Weight: 77.6 kg Allergies Allergy/AdvReac Type Severity Reaction Status Date / Time methadone Allergy Severe Blistering Verified 03/16/25 12:19 Penicillins Allergy Intermediate Rash, Verified 03/16/25 12:19 itching piroxicam Allergy Intermediate Rash Verified 03/16/25 12:19 ("uses celebrex at home") Cephalosporins AdvReac Intermediate Gastrointestinal Verified 03/16/25 12:19 Upset levofloxacin AdvReac Intermediate GI upset Verified 03/16/25 12:19 oxycodone AdvReac Intermediate Nausea, Verified 03/16/25 12:19 "Mild" disorientation Sulfa (Sulfonamide AdvReac Intermediate Gastrointestinal Verified 03/16/25 12:19 Antibiotics) Upset Medications Home Medications Medication Instructions Recorded Confirmed Last Taken ascorbic acid (vitamin C) 500 mg 500 mg PO DAILY 04/24/20 03/16/25 Unknown tablet (Vitamin C) coenzyme Q10 50 mg capsule (Co 60 mg PO DAILY 04/24/20 03/16/25 Unknown Q-10) guaifenesin 600 mg tablet, 600 mg PO BID 04/24/20 03/16/25 Unknown extended release 12 hr (Mucinex) metformin 500 mg tablet 1,000 mg PO BID 04/24/20 03/16/25 Unknown uinibwve-ajk-dcibn acid 0.4 1 tab PO DAILY 04/24/20 03/16/25 Unknown mg-lycopene 300 mcg-lutein 250 mcg tablet (Centrum Silver) omega 1-vox-xgm-fish oil 1,000 mg 1 cap PO BID 04/24/20 03/22/25 Unknown (120 mg-180 mg) capsule spironolactone 100 mg tablet 100 mg PO QAM 04/24/20 03/16/25 Unknown (Aldactone) tizanidine 4 mg tablet (Zanaflex) 4 mg PO QID 04/24/20 03/16/25 Unknown vitamin B complex 1 tab PO DAILY 04/24/20 03/16/25 Unknown zolpidem 12.5 mg tablet,extended 12.5 mg PO HS 04/24/20 03/16/25 Unknown release,multiphase magnesium 250 mg tablet 250 mg PO TID 07/21/22 03/16/25 Unknown celecoxib 200 mg capsule (Celebrex) 100 mg PO BID 09/30/22 03/16/25 Unknown cholecalciferol (vitamin D3) 10 10 mcg PO BID 09/30/22 03/16/25 Unknown mcg (400 unit) capsule (Vitamin D3) doxycycline hyclate 50 mg capsule 50 mg PO BID 09/30/22 03/16/25 Unknown hydrocodone 10 mg-acetaminophen 1 tab PO Q4H 09/30/22 03/16/25 Unknown 325 mg tablet ipratropium bromide 21 mcg (0.03 2 spray intranasal UD PRN 09/30/22 03/16/25 Unknown %) nasal spray Congestion nortriptyline 10 mg capsule 10 mg PO BID 09/30/22 03/16/25 Unknown potassium chloride 10 mEq 10 meq PO BID 09/30/22 03/16/25 Unknown tablet,extended release (Klor-Con) propylene glycol (PF) 0.6 % eye 2 drp ophthalmic (eye) QID 09/30/22 03/16/25 Unknown drops (Systane Complete PF) sodium chloride 0.65 % nasal spray 1 spray intranasal BID PRN 09/30/22 03/16/25 Unknown aerosol (Saline Nasal Mist) Congestion vit C 250 mg-vit E 90 mg-zinc 40 1 tab PO BID 09/30/22 03/16/25 Unknown mg-copper 1 tf-esyywr-cgztig capsule (PreserVision AREDS-2) calcium 600 mg (as carbonate)-vit 1 tab PO DAILY 03/24/24 03/16/25 Unknown D3 20 mcg (800 unit) chewable tablet (Caltrate plus D) fluticasone propionate 50 1 - 2 spray intranasal BID 03/24/24 03/16/25 Unknown mcg/actuation nasal spray,suspension bumetanide 1 mg tablet 1 mg PO DIRECTED 03/16/25 03/22/25 Unknown dulaglutide 3 mg/0.5 mL 3 mg subcut WK 03/16/25 03/16/25 03/14/25 subcutaneous pen injector (Trulicity) levothyroxine 200 mcg tablet 200 mcg PO QAM 03/16/25 03/16/25 Unknown (Synthroid) metoprolol succinate 25 mg 37.5 mg PO BID 03/16/25 03/16/25 Unknown tablet,extended release 24 hr mometasone 220 mcg/actuation(120 2 inh inhalation QAM 03/16/25 03/16/25 Unknown doses)breath activated powder inhaler (Asmanex Twisthaler) vitamin B12 1 mg-folic acid 0.8 mg 1 tab PO DAILY 03/16/25 03/16/25 Unknown tablet Active Medications Generic Name Dose Route Start Last Admin Trade Name Freq PRN Reason Stop Dose Admin Acetaminophen 1,000 mg 03/28/25 06:00 03/28/25 07:19 Acetaminophen 500 Mg Tab PO 03/28/25 18:00 1,000 mg PREOP RENA Administration Celecoxib 200 mg 03/28/25 06:00 03/28/25 07:19 Celebrex 200 Mg Cap PO 03/28/25 18:00 200 mg PREOP RENA Administration Gabapentin 300 mg 03/28/25 06:00 03/28/25 07:19 Gabapentin 300 Mg Cap PO 03/28/25 18:00 300 mg PREOP RENA Administration Vancomycin HCl 1,250 mg/ 275 mls @ 200 mls/hr 03/28/25 06:00 03/28/25 07:17 Sodium Chloride IV 03/28/25 18:00 200 mls/hr PREOP RENA Administration Lactated Ringer's 1,000 mls @ 15 mls/hr 03/28/25 06:00 03/28/25 07:19 Lr IV 03/29/25 05:59 15 mls/hr .Q24H RENA Administration Past Anesthesia History No Hx of Anesthesia Complications and No Family Hx of Anesthesia Complications History of PONV No Hx of PONV and No Hx of Motion Sickness NPO Date Last Intake of Fluids: 03/27/25 Time Last Intake of Fluids: 23:45 Last Intake of Fluids Comment: sips with 03/28 AM meds Date Last Intake of Solids: 03/27/25 Time Last Intake of Solids: 23:45 HCG & FBG Results 03/28/25 06:47 POC Glucose 237 H Home Medications Home Medications Medication Instructions Recorded Confirmed Last Taken ascorbic acid (vitamin C) 500 mg 500 mg PO DAILY 04/24/20 03/16/25 Unknown tablet (Vitamin C) coenzyme Q10 50 mg capsule (Co 60 mg PO DAILY 04/24/20 03/16/25 Unknown Q-10) guaifenesin 600 mg tablet, 600 mg PO BID 04/24/20 03/16/25 Unknown extended release 12 hr (Mucinex) metformin 500 mg tablet 1,000 mg PO BID 04/24/20 03/16/25 Unknown yaijvwbl-jre-pywmf acid 0.4 1 tab PO DAILY 04/24/20 03/16/25 Unknown mg-lycopene 300 mcg-lutein 250 mcg tablet (Centrum Silver) omega 5-vtn-szu-fish oil 1,000 mg 1 cap PO BID 04/24/20 03/22/25 Unknown (120 mg-180 mg) capsule spironolactone 100 mg tablet 100 mg PO QAM 04/24/20 03/16/25 Unknown (Aldactone) tizanidine 4 mg tablet (Zanaflex) 4 mg PO QID 04/24/20 03/16/25 Unknown vitamin B complex 1 tab PO DAILY 04/24/20 03/16/25 Unknown zolpidem 12.5 mg tablet,extended 12.5 mg PO HS 04/24/20 03/16/25 Unknown release,multiphase magnesium 250 mg tablet 250 mg PO TID 07/21/22 03/16/25 Unknown celecoxib 200 mg capsule (Celebrex) 100 mg PO BID 09/30/22 03/16/25 Unknown cholecalciferol (vitamin D3) 10 10 mcg PO BID 09/30/22 03/16/25 Unknown mcg (400 unit) capsule (Vitamin D3) doxycycline hyclate 50 mg capsule 50 mg PO BID 09/30/22 03/16/25 Unknown hydrocodone 10 mg-acetaminophen 1 tab PO Q4H 09/30/22 03/16/25 Unknown 325 mg tablet ipratropium bromide 21 mcg (0.03 2 spray intranasal UD PRN 09/30/22 03/16/25 Unknown %) nasal spray Congestion nortriptyline 10 mg capsule 10 mg PO BID 09/30/22 03/16/25 Unknown potassium chloride 10 mEq 10 meq PO BID 09/30/22 03/16/25 Unknown tablet,extended release (Klor-Con) propylene glycol (PF) 0.6 % eye 2 drp ophthalmic (eye) QID 09/30/22 03/16/25 Un known drops (Systane Complete PF) sodium chloride 0.65 % nasal spray 1 spray intranasal BID PRN 09/30/22 03/16/25 Unknown aerosol (Saline Nasal Mist) Congestion vit C 250 mg-vit E 90 mg-zinc 40 1 tab PO BID 09/30/22 03/16/25 Unknown mg-copper 1 en-pdsvje-wdgiqu capsule (PreserVision AREDS-2) calcium 600 mg (as carbonate)-vit 1 tab PO DAILY 03/24/24 03/16/25 Unknown D3 20 mcg (800 unit) chewable tablet (Caltrate plus D) fluticasone propionate 50 1 - 2 spray intranasal BID 03/24/24 03/16/25 Unknown mcg/actuation nasal spray,suspension bumetanide 1 mg tablet 1 mg PO DIRECTED 03/16/25 03/22/25 Unknown dulaglutide 3 mg/0.5 mL 3 mg subcut WK 03/16/25 03/16/25 03/14/25 subcutaneous pen injector (Trulicity) levothyroxine 200 mcg tablet 200 mcg PO QAM 03/16/25 03/16/25 Unknown (Synthroid) metoprolol succinate 25 mg 37.5 mg PO BID 03/16/25 03/16/25 Unknown tablet,extended release 24 hr mometasone 220 mcg/actuation(120 2 inh inhalation QAM 03/16/25 03/16/25 Unknown doses)breath activated powder inhaler (Asmanex Twisthaler) vitamin B12 1 mg-folic acid 0.8 mg 1 tab PO DAILY 06/06/25 06/06/25 Unknown tablet Active Medications Generic Name Dose Route Start Last Admin Trade Name Nate PRN Reason Stop Dose Admin Acetaminophen 1,000 mg 03/28/25 06:00 03/28/25 07:19 Acetaminophen 500 Mg Tab PO 03/28/25 18:00 1,000 mg PREOP RENA Administration Celecoxib 200 mg 03/28/25 06:00 03/28/25 07:19 Celebrex 200 Mg Cap PO 03/28/25 18:00 200 mg PREOP RENA Administration Gabapentin 300 mg 03/28/25 06:00 03/28/25 07:19 Gabapentin 300 Mg Cap PO 03/28/25 18:00 300 mg PREOP RENA Administration Vancomycin HCl 1,250 mg/ 275 mls @ 200 mls/hr 03/28/25 06:00 03/28/25 07:17 Sodium Chloride IV 03/28/25 18:00 200 mls/hr PREOP RENA Administration Lactated Ringer's 1,000 mls @ 15 mls/hr 03/28/25 06:00 03/28/25 07:19 Lr IV 03/29/25 05:59 15 mls/hr .Q24H RENA Administration Exercise / Class Metabolic Activity Metabolic Activity: III < 4 Walking/Shop/Light housework (uses walker) Physical Exam Constitutional: no acute distress Mouth: + small oral opening; no dentition abnormality Thyromental Distance: > or= 3.5 Finger Breadths Mallampati Class: III Neck: + visual inspection normal Respiratory: + respiratory effort normal and + clear to auscultation bilaterally; no respiratory distress Cardiovascular: + regular rate and + regular rhythm; no murmur Musculoskeletal: no limited cervical ROM Psychiatric: + alert and + oriented x 3 ASA ASA3 Proposed Anesthesia Proposed Anesthesia: General Risk / Benefits Reviewed With: PT / POA / Parent / Guardian, Accepts Plan and Informed Consent Obtained
[2025-03-28] MEDS: INSULIN ASPART PER UNIT CHARGE SC STA (07:32)
--- NOTE | 2025-03-28 07:41 | History & Physical Bridge Note ---
Date of Service March 28, 2025 History & Physical Bridge Note I have examined the patient, reviewed the History & Physical and in the interval since the performance of the History & Physical I have noted the following changes of clinical significance: no changes noted
--- NOTE | 2025-03-28 07:42 | History & Physical Report ---
Date of Service March 28, 2025 Assessment & Plan (1) Myelopathy concurrent with and due to spinal stenosis of cervical region: Plan: C3-C4 anterior cervical discectomy and fusion History of Present Illness Chief Complaint: Bilateral arm numbness Primary Care Provider: Julio César Mukherjee MD This is a 79-year-old female known to me presents with marked decline in status. She has evidence of cervical myelopathy and here for surgical intervention. Allergies Allergy/AdvReac Type Severity Reaction Status Date / Time methadone Allergy Severe Blistering Verified 03/28/25 07:23 Penicillins Allergy Intermediate Rash, Verified 03/28/25 07:23 itching piroxicam Allergy Intermediate Rash Verified 03/28/25 07:23 ("uses celebrex at home") Cephalosporins AdvReac Intermediate Gastrointestinal Verified 03/28/25 07:23 Upset levofloxacin AdvReac Intermediate GI upset Verified 03/28/25 07:23 oxycodone AdvReac Intermediate Nausea, Verified 03/28/25 07:23 "Mild" disorientation Sulfa (Sulfonamide AdvReac Intermediate Gastrointestinal Verified 03/28/25 07:23 Antibiotics) Upset Home Medications Medication Instructions Recorded Confirmed Type ascorbic acid (vitamin C) 500 mg 500 mg PO DAILY 04/24/20 03/16/25 History tablet (Vitamin C) coenzyme Q10 50 mg capsule (Co 60 mg PO DAILY 04/24/20 03/16/25 History Q-10) guaifenesin 600 mg tablet, 600 mg PO BID 04/24/20 03/16/25 History extended release 12 hr (Mucinex) metformin 500 mg tablet 1,000 mg PO BID 04/24/20 03/16/25 History mocmsnno-bpr-wxbth acid 0.4 1 tab PO DAILY 04/24/20 03/16/25 History mg-lycopene 300 mcg-lutein 250 mcg tablet (Centrum Silver) omega 0-abl-jqg-fish oil 1,000 mg 1 cap PO BID 04/24/20 03/22/25 History (120 mg-180 mg) capsule spironolactone 100 mg tablet 100 mg PO QAM 04/24/20 03/16/25 History (Aldactone) tizanidine 4 mg tablet (Zanaflex) 4 mg PO QID 04/24/20 03/16/25 History vitamin B complex 1 tab PO DAILY 04/24/20 03/16/25 History zolpidem 12.5 mg tablet,extended 12.5 mg PO HS 04/24/20 03/16/25 History release,multiphase magnesium 250 mg tablet 250 mg PO TID 07/21/22 03/16/25 History celecoxib 200 mg capsule (Celebrex) 100 mg PO BID 09/30/22 03/16/25 History cholecalciferol (vitamin D3) 10 10 mcg PO BID 09/30/22 03/16/25 History mcg (400 unit) capsule (Vitamin D3) doxycycline hyclate 50 mg capsule 50 mg PO BID 09/30/22 03/16/25 History hydrocodone 10 mg-acetaminophen 1 tab PO Q4H 09/30/22 03/16/25 History 325 mg tablet ipratropium bromide 21 mcg (0.03 2 spray intranasal UD PRN 09/30/22 03/16/25 History %) nasal spray Congestion nortriptyline 10 mg capsule 10 mg PO BID 09/30/22 03/16/25 History potassium chloride 10 mEq 10 meq PO BID 09/30/22 03/16/25 History tablet,extended release (Klor-Con) propylene glycol (PF) 0.6 % eye 2 drp ophthalmic (eye) QID 09/30/22 03/16/25 History drops (Systane Complete PF) sodium chloride 0.65 % nasal spray 1 spray intranasal BID PRN 09/30/22 03/16/25 History aerosol (Saline Nasal Mist) Congestion vit C 250 mg-vit E 90 mg-zinc 40 1 tab PO BID 09/30/22 03/16/25 History mg-copper 1 vy-ffnjrx-pxdimx capsule (PreserVision AREDS-2) calcium 600 mg (as carbonate)-vit 1 tab PO DAILY 03/24/24 03/16/25 History D3 20 mcg (800 unit) chewable tablet (Caltrate plus D) fluticasone propionate 50 1 - 2 spray intranasal BID 03/24/24 03/16/25 History mcg/actuation nasal spray,suspension bumetanide 1 mg tablet 1 mg PO DIRECTED 03/16/25 03/22/25 History dulaglutide 3 mg/0.5 mL 3 mg subcut WK 03/16/25 03/16/25 History subcutaneous pen injector (Trulicity) levothyroxine 200 mcg tablet 200 mcg PO QAM 03/16/25 03/16/25 History (Synthroid) metoprolol succinate 25 mg 37.5 mg PO BID 03/16/25 03/16/25 History tablet,extended release 24 hr mometasone 220 mcg/actuation(120 2 inh inhalation QAM 03/16/25 03/16/25 History doses)breath activated powder inhaler (Asmanex Twisthaler) vitamin B12 1 mg-folic acid 0.8 mg 1 tab PO DAILY 03/16/25 03/16/25 History tablet Past Med/Surg History Problem List (Updated 03/28/25 @ 07:42 by Sam Herrera, DO) Myelopathy concurrent with and due to spinal stenosis of cervical region Encounter for pre-operative examination Hypercalcemia Cervical postlaminectomy syndrome Lumbar postlaminectomy syndrome Acquired lymphedema of lower extremity Lower extremity edema Chronic pain (Acute) Hypophosphatemia (Acute) Hypomagnesemia (Acute) Hypertension (Acute) Lumbar stenosis with neurogenic claudication (Acute) Postsurgical hypothyroidism (Chronic) Spinal stenosis (Chronic) Asthma (Chronic) Fibromyalgia (Chronic) History of PCOS (Chronic) Allergic rhinitis (Chronic) DM type 2 (diabetes mellitus, type 2) (Chronic) Medical History Acquired lymphedema RLE > LLE Allergic rhinitis Asthma Cardiac murmur "Since childhood" Echo 01/2024: no significant heart valve disease Degenerative disc disease Diabetes mellitus, type 2 Dyslipidemia Fibromyalgia H/O hyperparathyroidism s/p parathyroidectomy Mansi's disease History of infection "When I was [age], I had a total lymph infection" per patient History of PCOS Hx of gastroesophageal reflux (GERD) Hypertension Hypothyroidism s/p thymus irradiation as child > complete right sided thyroidectomy and partial left sided thyroidectomy 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 enough to need transfusions" per patient Lower extremity edema Obesity Osteoarthritis Peripheral neuropathy Upper Bilateral Extremities/"fingers" Fuller syndrome Tachycardia Controlled with beta lucia Follows with S cardio Surgical History H/O section x1 History of arthroscopy Right knee History of carpal tunnel release R/L History of cataract surgery R/L History of colonoscopy History of lumbar fusion x2 T10-L3 Hardware Present History of lumpectomy of right breast Benign History of repair of rotator cuff Bilateral History of right breast biopsy History of thoracic surgery C7-T4 / T10-L3 C4-T1 Hardware Present T10-L3 Hardware Present History of tonsillectomy History of tooth extraction History of total knee replacement Right > spacer placed later for staph infection, and then revision History of total knee replacement Left History of wisdom tooth extraction Hx of cervical spine surgery Limited ROM C4-6 fusion "C1 and C2 are autofused" C4-T1 Hardware Present Hx of foot surgery left > toe procedures - hardware present Hx of parathyroidectomy 2 of the 4 removed Hx of thyroidectomy S/P lumbar discectomy Family History Other Coronary heart disease Diabetes Social History Smoking Status: Never smoker Second Hand Exposure: No; Do You Dip or Chew Tobacco: No; Tobacco Cessation Education Requested by Patient: No Hx Alcohol Use: Yes Alcohol type: wine Hx Substance Use: No Preferred Language: Tamaz[place] Communication Ability: Effective Catering Convention Services Manager Required: No Beliefs That Will Affect Care: None Current Living Situation: Spouse Other Information That Helps Us Care for You: No Feels Safe at Home: Yes Safety Concerns: Feels Safe At This Time Assistive Devices: Glasses and Walker Physical Exam Physical Exam: Patient is alert and oriented heart regular rhythm Lungs clear
[2025-03-28] MEDS: LR 60ML/HR IV SCH (07:47)
[2025-03-28] MEDS: ceFAZolin 330 MG/ML 1 GM VIAL ONE (08:33)
[2025-03-28] MEDS ORDERED: PHENYLEPHRINE 100MCG/ML 5ML SYR ONE (08:49)
[2025-03-28] MEDS ORDERED: ePHEDrine sulfate 50 MG/5 ML SYR ONE (08:49)
--- NOTE | 2025-03-28 09:17 | Operative Report ---
Post Operative Report Pre & Post Diagnosis Operation Date: 03/28/25 07:45 Pre-Op Diagnosis: Cervical Spondylosis with Myelopathy Post-Op Diagnosis: Cervical Spondylosis with Myelopathy I identified the patient and participated in the time-out.: Yes Procedure Operation Date: 03/28/25 07:45 Actual Procedures #1 anterior cervical discectomy with bilateral foraminotomies C3-C4. #2 anterior cervical arthrodesis C3-C4. #3 placement of globus coalition cage 12 mm in height filled with os design bone graft C3-C4. #4 removal of hardware C4. Surgeon Sam Herrera, DO Electronic Warfare Officer Marilee Lopez Estimated Blood Loss 10 Findings Consistent with Post-Op Diagnosis Specimens None Indications This is a 79-year-old female who presents with above-mentioned diagnosis. In light of her severe cord compression symptoms she is here for urgent decompression. Description of Procedure Patient was met with identified informed consent obtained. Patient was then taken to the operative suite underwent intubation and placed in a supine position on the Augustus table with a head [place] engine head repairer. All bony promises well-padded eyes inspected to ensure no external precipice upon them. This point the anterior cervical spine was prepped and draped in normal sterile fashion. With the assistance of fluoroscopy identified the C3-C4 disc space. Incision was made directly overlying this region and blunt dissection with the assistance of bipolar electrocautery performed down to exposing the anterior cervical spine at C3-C4. I then performed a complete discectomy of C3-C4 out to the uncovertebral bilaterally. [place] distraction pins utilized to assist in visualization. Removed all posterior annular fibers and wanted to limit and bilateral foraminotomies performed for complete decompression. Endplates were then burred to subcortical bony bone and a 12 mm coalition cage filled with os design bone graft tapped in position. I did have to remove a screw from the C4 vertebral level from the previous construct. This was done in order to place new screws into the stand-alone construct at C3-C4. Once it was locked in place the incision was copiously irrigated explored to ensure no damage to surrounding structures remaining bleeding. 10 round HARIS drain inserted. The incision was then closed with 2 Vicryl in the fascia and 4 Monocryl for final skin closure. Steri-Strips sterile dressing placed. Patient waken taken the PACU stable condition. Please note spinal cord monitoring visualized at the procedure no changes noted. Marilee Lopez was present at the entire procedure and on the patient positioning complex portion of the surgery and final skin closure. I attest to the content of the Intraoperative Record and any orders documented therein. Any exceptions are noted below.
--- NOTE | 2025-03-28 10:03 | Fluoroscopy Report ---
FL cervical 2-3V CLINICAL HISTORY: C3-4 ANT CERVICAL DISCECTOMY AND FUSION COMPARISON STUDY: None FLUOROSCOPY TIME: 15 seconds FLUOROSCOPY IMAGES: 3 EXPOSURE DOSE: 1.6 mGy FINDINGS: Fluoroscopy was provided for instrumented fusion of the cervical spine. IMPRESSION: Intraoperative fluoroscopy. ACT 112: Negative or not required by law. Electronically signed by: Marbin Garcia M.D. 03/28/2025 10:01 AM
[2025-03-28] MEDS: HYDROmorphone INJ 2 MG/ML SYR/VIAL IV PRN (10:15)
[2025-03-28] MEDS ORDERED: ACETAMINOPHEN 500 MG TAB PO PRN (11:11)
[2025-03-28] MEDS ORDERED: RACEPINEPHRINE 2.25% NEBU SOLN 0.5 ML VIAL INH PRN (11:11)
[2025-03-28] MEDS ORDERED: ALUMINUM/MAGNESIUM SUSP 30 ML UDC PO PRN (11:11)
[2025-03-28] MEDS ORDERED: DO NOT ADMINISTER FLU VACCINE PRN (11:11)
[2025-03-28] MEDS ORDERED: LORazepam 2 MG/1 ML VIAL IV PRN (11:11)
[2025-03-28] MEDS ORDERED: IPRATROPIUM BROMIDE NASAL SPRAY 0.03% 30 ML PRN (11:11)
[2025-03-28] MEDS ORDERED: ONDANSETRON INJ 2 MG/ML 2 ML VIAL IV PRN (11:11)
[2025-03-28] MEDS ORDERED: DO NOT ADMINISTER PNEUMOCOCCAL VACCINE PRN (11:11)
[2025-03-28] MEDS ORDERED: ACETAMINOPHEN 1,000 MG/100 ML VIAL IV PRN (11:11)
[2025-03-28] MEDS ORDERED: hydrOXYzine HCl 25 MG TAB PO PRN (11:11)
[2025-03-28] MEDS ORDERED: dexAMETHasone 8 MG in SYRINGE 0 ML IV PRN (11:11)
[2025-03-28] MEDS ORDERED: METOCLOPRAMIDE HCL INJ 5 MG/ML 2 ML VIAL IV PRN (11:11)
[2025-03-28] MEDS ORDERED: HYDROmorphone INJ 1 MG/ML SYRINGE IV PRN (11:11)
[2025-03-28] MEDS ORDERED: ONDANSETRON 4 MG OD TAB PO PRN (11:11)
[2025-03-28] MEDS ORDERED: bisacodyL 10 MG SUPP PR PRN (11:11)
[2025-03-28] MEDS ORDERED: SOD PHOSPHATE/SOD BIPHOSPHATE ENEMA 132 ML BTL PR PRN (11:11)
[2025-03-28] MEDS ORDERED: NALOXONE HCL 0.4 MG/1 ML VIAL/CARP IV PRN (11:11)
[2025-03-28] MEDS ORDERED: HYDROmorphone INJ 0.5 MG/0.5 ML SYR IV PRN (11:11)
[2025-03-28] MEDS ORDERED: PROMETHAZINE 12.5 MG/50.5 ML BAG IV PRN (11:11)
[2025-03-28] MEDS ORDERED: PHARMACY GLYCEMIC MGMT CONSULT PRN (11:11)
[2025-03-28] MEDS ORDERED: LORazepam 0.5 MG TAB PO PRN (11:11)
[2025-03-28] MEDS ORDERED: SODIUM CHLORIDE 0.65% NA SOLN 45 ML (OCEAN) PRN (11:11)
[2025-03-28] MEDS ORDERED: MAGNESIUM HYDROXIDE SUSP 30 ML UDC PO PRN (11:11)
[2025-03-28] MEDS ORDERED: diphenhydrAMINE Capsule 25 MG CAP PO PRN (11:11)
[2025-03-28] MEDS ORDERED: FAMOTIDINE 20 MG TAB PO PRN (11:11)
[2025-03-28] MEDS: dexAMETHasone 6 MG in SYRINGE 0 ML IV SCH (12:31)
[2025-03-28] MEDS: tiZANidine HCL 4 MG TABLET PO SCH (12:32)
[2025-03-28] MEDS: ARTIFICIAL TEARS OP SCH (12:32)
[2025-03-28] MEDS: MAGNESIUM OXIDE 400 MG TAB PO SCH (12:32)
[2025-03-28] MEDS: BUMETANIDE 1 MG TAB PO SCH (12:33)
--- NOTE | 2025-03-28 12:46 | Pharmacy Report ---
Pharmacy Glycemic Short Note 2 - Date of Service March 28, 2025 - Glycemic Short BSG Results (Last 24 hours): 03/28/25 03/28/25 03/28/25 06:47 09:23 11:37 POC Glucose 237 H 174 H 213 H OUTPATIENT ANTIDIABETIC REGIMEN: * trulicity 3 mg sq weekly, metformin 1 gm bid ASSESSMENT: * 79 year old s/p surgery, POD 0 - pharmacy consulted for glycemic management. Postop BSG >200- did receive IV dexamethasone intraoperatively and then also ordered it postop x 3 doses every 8 hours * Will give Lantus 30 units x 1 now to cover ongoing steroids and start novolog weight based stress 3 dosing. Will add overnight check to ensure BSGs stable. PLAN FOR INPATIENT GLYCEMIC CONTROL: * Hold outpatient oral diabetes medications * Basal insulin * Lantus 30 units x 1 (for dexamethasone) * Lantus 0-10 units HS if BSG >180 * Bolus insulin * NovoLog per scale ACHS or Q6hrs while NPO * Goal Range: Low 110 mg/dL - High 140 mg/dL * Correction Factor: 20 mg/dL/unit * Nutritional / Prandial insulin per carb ratio of 1 unit per 7 grams CHO consumed
[2025-03-28] MEDS: INSULIN ASPART PER UNIT CHARGE SC SCH (12:51)
[2025-03-28] MEDS: LANTUS PER UNIT CHARGE SC ONE (12:58)
--- NOTE | 2025-03-28 13:57 | Consultation ---
Date of Consultation March 28, 2025 Assessment & Plan (1) Myelopathy concurrent with and due to spinal stenosis of cervical region: (2) Hypercalcemia: (3) Hypertension: (4) Postsurgical hypothyroidism: (5) Asthma: (6) DM type 2 (diabetes mellitus, type 2): (7) Lower extremity edema: (8) Hypomagnesemia: (9) H/O hyperparathyroidism: Plan 79yo female with history of T2DM, hypothyroidism, hyperparathyroidism s/p parathyroidectomy in the , chronic hypercalcemia despite parathyroidectomy, HTN, extensive spinal DJD, and asthma presented today for cervical spine surgery by Dr Herrera. Specifically she underwent anterior cervical discectomy with bilateral foraminotomies at C3-C4, anterior cervical arthrodesis at C3-C4, and removal of hardware at C4. According to records and MRI of the cervical spine in February 2025 she had severe cervical spine stenosis at C3-C4 with resulting myelopathy. Patient indeed reported b/l hand weakness & pain over the last few months. #cervical spine stenosis - -s/p C3-C4 discectomy with b/l foraminotomies as well as C3-C4 arthrodesis; old hardware at C4 was removed -defer pain management, diet advancement, disposition to Dr Herrera's team #T2DM, uncontrolled - -pharmacy glycemic team has been consulted for glycemic management -anticipate her BSGs to run high over the next 2 days due to high-dose steroids being used tiffanie-operatively -she is only on metformin 1gm BID at home -with her chronically elevated a1c and anticipated hyperglycemia upon return home consider once-daily long-acting insulin (lantus, etc) #h/o hyperparathyroidism with prior parathyroidectomy and chronic hypercalcemia - -calcium levels have been mildly elevated for some time, with most recent total calium level of 11.1 -no apparent symptoms from such -check calcium with BMP & phos level in am #hypothyroidism - -no TSH in the EMR since 2021 -will recheck in am -cont synthroid #history of hypomagnesemia - -given her chronic bumex will check BMP with mag in am; replace as needed -cont mag supplementation TID as previous #hyponatremia - -recent Na level 131; prior level 132 in 2023 -2nd to bumex use? -hold AM bumex tomorrow and check BMP for stability -also hold AM aldactone as BPs are low-normal at this time #HTN - -cont meto succ 37.5mg BID; adjust dose if needed if BPs are low tiffanie- operatively -hold bumex tomorrow am -hold aldactone tomorrow am #history of right total knee replacement infection ?? - -per records from Dr Mukherjee -is there another reason for chronic doxycycline use? -on doxycycline 50mg BID; continue as prior #h/o asthma - -no exacerbation at this time -albuterol prn Thank you for this consult. Our team will follow with you. History of Present Illness Requesting Physician: Sam Herrera DO Reason for Consultation: post-operative medical management Attending Physician: Sam Herrera DO History of Present Illness 79yo female with history of T2DM, hypothyroidism, hyperparathyroidism s/p parathyroidectomy in the , chronic hypercalcemia despite parathyroidectomy, HTN, extensive spinal DJD, and asthma presented today for cervical spine surgery by Dr Herrera. Specifically she underwent anterior cervical discectomy with bilateral for aminotomies at C3-C4, anterior cervical arthrodesis at C3-C4, and removal of hardware at C4. I saw her post-op on the orthopedic floor and she was resting comfortably. She denied any chest pain, dyspnea, abd pain or nausea/emesis since the operation. She tolerated her meal earlier today. was present at bedside during the visit. Allergies Allergy/AdvReac Type Severity Reaction Status Date / Time methadone Allergy Severe Blistering Verified 03/28/25 07:23 Penicillins Allergy Intermediate Rash, Verified 03/28/25 07:23 itching piroxicam Allergy Intermediate Rash Verified 03/28/25 07:23 ("uses celebrex at home") Cephalosporins AdvReac Intermediate Gastrointestinal Verified 03/28/25 07:23 Upset levofloxacin AdvReac Intermediate GI upset Verified 03/28/25 07:23 oxycodone AdvReac Intermediate Nausea, Verified 03/28/25 07:23 "Mild" disorientation Sulfa (Sulfonamide AdvReac Intermediate Gastrointestinal Verified 03/28/25 07:23 Antibiotics) Upset cefixime [From Suprax] AdvReac Diarrhea Verified 03/28/25 11:25 Home Medications Medication Instructions Recorded Confirmed Type ascorbic acid (vitamin C) 500 mg 500 mg PO DAILY 04/24/20 03/28/25 History tablet (Vitamin C) coenzyme Q10 50 mg capsule (Co 60 mg PO DAILY 04/24/20 03/28/25 History Q-10) guaifenesin 600 mg tablet, 600 mg PO BID 04/24/20 03/28/25 History extended release 12 hr (Mucinex) metformin 500 mg tablet 1,000 mg PO BID 04/24/20 03/28/25 History nkpiecoa-rjv-sjzfy acid 0.4 1 tab PO DAILY 04/24/20 03/28/25 History mg-lycopene 300 mcg-lutein 250 mcg tablet (Centrum Silver) omega 3-xql-rjt-fish oil 1,000 mg 1 cap PO BID 04/24/20 03/28/25 History (120 mg-180 mg) capsule spironolactone 100 mg tablet 100 mg PO QAM 04/24/20 03/28/25 History (Aldactone) tizanidine 4 mg tablet (Zanaflex) 4 mg PO QID 04/24/20 03/28/25 History vitamin B complex 1 tab PO DAILY 04/24/20 03/28/25 History zolpidem 12.5 mg tablet,extended 12.5 mg PO HS 04/24/20 03/28/25 History release,multiphase magnesium 250 mg tablet 250 mg PO TID 07/21/22 03/28/25 History celecoxib 200 mg capsule (Celebrex) 100 mg PO BID 09/30/22 03/28/25 History cholecalciferol (vitamin D3) 10 10 mcg PO BID 09/30/22 03/28/25 History mcg (400 unit) capsule (Vitamin D3) doxycycline hyclate 50 mg capsule 50 mg PO BID 09/30/22 03/28/25 History hydrocodone 10 mg-acetaminophen 1 tab PO Q4H 09/30/22 03/28/25 History 325 mg tablet ipratropium bromide 21 mcg (0.03 2 spray intranasal UD PRN 09/30/22 03/28/25 History %) nasal spray Congestion nortriptyline 10 mg capsule 10 mg PO BID 09/30/22 03/28/25 History potassium chloride 10 mEq 10 meq PO BID 09/30/22 03/28/25 History tablet,extended release (Klor-Con) propylene glycol (PF) 0.6 % eye 2 drp ophthalmic (eye) QID 09/30/22 03/28/25 History drops (Systane Complete PF) sodium chloride 0.65 % nasal spray 1 spray intranasal BID PRN 09/30/22 03/28/25 History aerosol (Saline Nasal Mist) Congestion vit C 250 mg-vit E 90 mg-zinc 40 1 tab PO BID 09/30/22 03/28/25 History mg-copper 1 ix-dpkiit-znpfos capsule (PreserVision AREDS-2) calcium 600 mg (as carbonate)-vit 1 tab PO DAILY 03/24/24 03/28/25 History D3 20 mcg (800 unit) chewable tablet (Caltrate plus D) fluticasone propionate 50 1 - 2 spray intranasal BID 03/24/24 03/28/25 History mcg/actuation nasal spray,suspension bumetanide 1 mg tablet 1 mg PO DIRECTED 03/16/25 03/28/25 History dulaglutide 3 mg/0.5 mL 3 mg subcut WK 03/16/25 03/16/25 History subcutaneous pen injector (Trulicity) levothyroxine 200 mcg tablet 200 mcg PO QAM 03/16/25 03/28/25 History (Synthroid) metoprolol succinate 25 mg 37.5 mg PO BID 03/16/25 03/28/25 History tablet,extended release 24 hr mometasone 220 mcg/actuation(120 2 inh inhalation QAM 03/16/25 03/28/25 History doses)breath activated powder inhaler (Asmanex Twisthaler) vitamin B12 1 mg-folic acid 0.8 mg 1 tab PO DAILY 03/16/25 03/28/25 History tablet hydrocodone 5 mg-acetaminophen 325 1 tab PO Q6H PRN pain #30 tabs 03/28/25 Rx mg tablet Patient History Medical History Mansi's disease History of infection "When I was [age], I had a total lymph infection" per patient Lower extremity edema Hypertension Obesity Allergic rhinitis History of PCOS Peripheral neuropathy Upper Bilateral Extremities/"fingers" Dyslipidemia H/O hyperparathyroidism s/p parathyroidectomy 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 enough to need transfusions" per patient Degenerative disc disease Osteoarthritis Hx of gastroesophageal reflux (GERD) Hypothyroidism s/p thymus irradiation as child > complete right sided thyroidectomy and partial left sided thyroidectomy Diabetes mellitus, type 2 Fuller syndrome Acquired lymphedema RLE > LLE Cardiac murmur "Since childhood" Echo 01/2024: no significant heart valve disease Tachycardia Controlled with beta lucia Follows with [facility] Fibromyalgia Asthma Surgical History History of wisdom tooth extraction History of lumpectomy of right breast Benign History of right breast biopsy History of repair of rotator cuff Bilateral History of thoracic surgery C7-T4 / T10-L3 C4-T1 Hardware Present T10-L3 Hardware Present History of total knee replacement Left History of total knee replacement Right > spacer placed later for staph infection, and then revision History of arthroscopy Right knee Hx of foot surgery left > toe procedures - hardware present History of carpal tunnel release R/L History of lumbar fusion x2 T10-L3 Hardware Present Hx of cervical spine surgery Limited ROM C4-6 fusion "C1 and C2 are autofused" C4-T1 Hardware Present History of colonoscopy S/P lumbar discectomy History of tonsillectomy H/O section x1 History of tooth extraction History of cataract surgery R/L Hx of parathyroidectomy 2 of the 4 removed Hx of thyroidectomy Family History Other Coronary heart disease Diabetes Social History (Updated 03/28/25 @ 20:20 by Tremayne Charles MD) Smoking Status: Never smoker Second Hand Exposure: No; Do You Dip or Chew Tobacco: No; Hx Alcohol Use: Yes Alcohol type: wine Hx Substance Use: No Preferred Language: Panamanian Communication Ability: Effective 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: No Beliefs That Will Affect Care: None marital status: Current Living Situation: Spouse Feels Safe at Home: Yes Assistive Devices: Glasses and Walker Review of Systems Review of Systems: gen - recent fevers/chills; has had weight loss in the last year HENT - no recent URI symptoms CV - no chest pain pulm - no dyspnea or chronic MANTILLA GI - no nausea, emesis or abd pain - no recent dysuria musculo/neuro - chronic b/l arm & hand numbness due to cervical spine DJD endo - recent a1c 7.9% in early March Physical Exam Physical Exam: gen - resting comfortably in bed, NAD, awake/alert eyes - PERRL HENT - MM very dry, no lesions neck - c-spine collar in place; dressings intact anterior neck; no obvious JVD heart - RRR, s1 s2, 1/6 systolic murmur LSB lungs - CTA b/l, mildly decreased BS b/l bases abd - soft NT ND BS+ ext - pulses b/l feet 2+; trace edema b/l feet/ankles neuro - strength b/l handgrip 5/5; arm flexion 5/5, arm extension 5/5; leg strength 5/5 b/l psych - a/o x 3 Results & Data Vital Signs (Past 12 Hours) Vital Signs Temp Pulse Pulse Resp BP Pulse Ox Pulse Ox 03/28/25 12:59 88 18 135/81 95 03/28/25 12:01 36.7 C 89 16 136/83 97 03/28/25 11:30 36.4 C L 80 18 128/80 97 03/28/25 11:24 94 H 16 96 03/28/25 11:00 03/28/25 11:00 94 03/28/25 11:00 36.4 C L 85 16 143/82 H 94 03/28/25 10:42 36.3 C L 88 14 133/74 96 03/28/25 10:30 83 14 139/76 98 03/28/25 10:20 86 16 147/78 H 93 03/28/25 10:10 82 16 131/63 97 03/28/25 10:00 78 16 131/56 L 97 03/28/25 09:50 79 18 138/74 100 03/28/25 09:40 85 16 128/68 100 03/28/25 09:30 84 16 138/74 100 03/28/25 09:21 36.0 C L 82 14 124/69 99 O2 Del Method O2 Del Method O2 Flow Rate 03/28/25 12:59 Room Air 03/28/25 12:01 Nasal Cannula 1 03/28/25 11:30 Nasal Cannula 2 03/28/25 11:24 Nasal Cannula 2 03/28/25 11:00 Room Air 03/28/25 11:00 Room Air 03/28/25 11:00 Room Air 03/28/25 10:42 Nasal Cannula 2 03/28/25 10:30 Room Air 03/28/25 10:20 Room Air 03/28/25 10:10 Room Air 03/28/25 10:00 Room Air 03/28/25 09:50 Oxymask 2 03/28/25 09:40 Oxymask 2 03/28/25 09:30 Oxymask 3 03/28/25 09:21 Oxymask 6 Laboratory Results pre-op labs on 03/19/25 - CBC wnl Na level 131 Ca level 11.1 albumin wnl u/a wnl HbA1c 7.9% PG Care Time/CCT Total # of Minutes Spent Total Time Spent with Patient: Total time spent is greater than 50% in coordination of care (as documented) at patient's floor/unit and/or counseling patient: Coding Level of Care Code 79071 INT INP/OBS CARE MIN Diagnoses Myelopathy concurrent with and due to spinal stenosis of cervical region M48.02; G99.2 Hypercalcemia E83.52 Hypertension I10 Hypertension type: unspecified Postsurgical hypothyroidism E89.0 Asthma J45.909 Type 2 diabetes mellitus without complication, without long-term current use of insulin E11.9 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 insulin use: without middle or intermediate school principal use Diabetes mellitus complication status: without complication Lower extremity edema R60.0 Hypomagnesemia E83.42 H/O hyperparathyroidism Z86.39 (3) Hypertension Hypertension type: unspecified Qualified Code(s): I10 - Essential (primary) hypertension (6) DM type 2 (diabetes mellitus, type 2) 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 insulin use: without middle or intermediate school principal use Diabetes mellitus complication status: without complication Qualified Code(s): E11.9 - Type 2 diabetes mellitus without complications
--- NOTE | 2025-03-28 14:42 | Anesthesiology Progress Note ---
Date of Service March 28, 2025 Anesthesia Post Procedure Vital Signs Vital Signs: Temp Pulse Pulse Resp BP Pulse Ox Pulse Ox 03/28/25 13:57 36.4 C L 79 16 95/67 L 95 03/28/25 12:59 88 18 135/81 95 03/28/25 12:01 36.7 C 89 16 136/83 97 03/28/25 11:30 36.4 C L 80 18 128/80 97 03/28/25 11:24 94 H 16 96 03/28/25 11:00 03/28/25 11:00 94 03/28/25 11:00 36.4 C L 85 16 143/82 H 94 03/28/25 10:42 36.3 C L 88 14 133/74 96 03/28/25 10:30 83 14 139/76 98 03/28/25 10:20 86 16 147/78 H 93 03/28/25 10:10 82 16 131/63 97 03/28/25 10:00 78 16 131/56 L 97 03/28/25 09:50 79 18 138/74 100 03/28/25 09:40 85 16 128/68 100 03/28/25 09:30 84 16 138/74 100 03/28/25 09:21 36.0 C L 82 14 124/69 99 O2 Del Method O2 Del Method O2 Flow Rate 03/28/25 13:57 Nasal Cannula 2 03/28/25 12:59 Room Air 03/28/25 12:01 Nasal Cannula 1 03/28/25 11:30 Nasal Cannula 2 03/28/25 11:24 Nasal Cannula 2 03/28/25 11:00 Room Air 03/28/25 11:00 Room Air 03/28/25 11:00 Room Air 03/28/25 10:42 Nasal Cannula 2 03/28/25 10:30 Room Air 03/28/25 10:20 Room Air 03/28/25 10:10 Room Air 03/28/25 10:00 Room Air 03/28/25 09:50 Oxymask 2 03/28/25 09:40 Oxymask 2 03/28/25 09:30 Oxymask 3 03/28/25 09:21 Oxymask 6 Pain Intensity Neck: Pain Intensity: 5 Transfer of Care Handoff Completed per policy Notes Mental Status: alert / awake / arousable and participated in evaluation Nausea / Vomiting: adequately controlled Pain: adequately controlled Airway Patency, RR, SpO2: stable & adequate BP & HR: stable & adequate Hydration State: stable & adequate Anesthetic Complications: no major complications apparent and Pt Satisfied with anesthetic care
[2025-03-28] MEDS: ceFAZolin 2000MG 2,000 MG/15 ML SYR IV SCH (17:17)
[2025-03-28] MEDS: DOXYCYCLINE HYCLATE 50 MG CAP PO SCH (20:26)
[2025-03-28] MEDS: guaiFENesin 600 MG TABCR PO SCH (20:26)
[2025-03-28] MEDS: LANTUS PER UNIT CHARGE SC SCH (20:54)
[2025-03-28] MEDS: POTASSIUM CHLORIDE 10 MEQ TABCR PO SCH (23:50)
[2025-03-28] MEDS: NORTRIPTYLINE HCL 10 MG CAP PO SCH (23:50)
[2025-03-28] MEDS: METOPROLOL SUCC 25MG EXT REL TAB PO SCH (23:51)
[2025-03-28] MEDS: FLUTICASONE PROPIONATE NA SPR 16 GM BTL SCH (23:51)
[2025-03-28] MEDS: DOCUSATE SODIUM/SENNA 50/8.6MG TAB PO SCH (23:51)
[2025-03-28] MEDS: CHOLECALCIFEROL 10 MCG (400 UNITS) TAB PO SCH (23:51)
[2025-03-29] MEDS: INSULIN ASPART PER UNIT CHARGE SC SCH (00:25)
[2025-03-29] MEDS: ZOLPIDEM TARTRATE 5 MG TAB PO SCH (03:32)
[2025-03-29] MEDS: POLYETHYLENE (MIRALAX) 17 GM PACK PO SCH (05:59)
[2025-03-29] MEDS: LEVOTHYROXINE SODIUM 200 MCG TABLET PO SCH (06:00)
[2025-03-29 07:15] LABS: BUN Creatinine Ratio 21.5 (10-20); Creatinine Clr Calc Pharmacy 48.1 ml/min; Magnesium 1.8 mg/dl (1.7-2.4)
[2025-03-29 07:29] LABS: Thyroid Stimulating Hormone 0.181 uIu/ml (0.300-4.500)
[2025-03-29] MEDS: HYDROCODONE/ACETAMOPHEN 5/325MG TAB PO PRN (08:00)
--- NOTE | 2025-03-29 08:44 | Discharge Summary ---
Date of Service March 29, 2025 Admission HPI Per Admitting Provider This is a 79-year-old female known to me presents with marked decline in status. She has evidence of cervical myelopathy and here for surgical intervention. Admission Exam (Per Admitting) Constitutional WD/WN, vitals as above Eyes PERRL, conjunctivae normal, anicteric sclerae ENMT external ear and nose normal, oropharynx normal Neck normal visual inspection Respiratory normal respiratory effort Cardiovascular Extremities: + edema Gastrointestinal (Abdomen) Inspection/Auscultation: abdomen normal to inspection Musculoskeletal Spine: + limited cervical ROM and + pain with cervical ROM Skin + turgor decreased Neurologic normal touch/pain/proprioception and moves all extremities Psychiatric A+Ox3, euthymic affect Eye Contact: good eye contact Discharge Data Consultations 03/28/25 11:11 Consult Hospitalist Routine Procedures Performed Operation Date: 03/28/25 07:45 Actual Procedures p C3-C4 Anterior Cervical Discectomy and Fusion, Spinal Cord Monitoring(Not Applicable) - Sam Herrera DO Hospital Course (1) Myelopathy concurrent with and due to spinal stenosis of cervical region: Caity is being discharged home on postoperative day 1 status post ACDF C3-4. HARIS drain output last shift was 5 cc. She is significant improvement in the numbness and tingling in her fingertips and hands. She has been up and ambulatory around the room. Mild dysphagia. She is tolerating dinner and breakfast this morning. No other complaints. Discharge Instructions ACTIVITY RECOMMENDATIONS: SELF CARE INSTRUCTIONS AFTER CERVICAL FUSIONS 1. No smoking. Smoking drastically decreases the chance of a solid fusion. 2. No bending, lifting more than 5 pounds, or twisting (roll like a log when turning in bed). 3. You may shower 3 days after surgery. Thoroughly dry wound. Do not soak in the tub. 4. Cervical collar: Must be worn at all times including sleeping. You may remove the brace only to bath, eat and if you are sitting in a recliner. 5. Please walk as much as you can for exercise. Gradually increase the distance that you walk as your endurance increases. 6. You may return to previous diet. SPECIAL CARE INSTRUCTIONS: VERY IMPORTANT TO READ AND REVIEW A. Do not take any anti-inflammatory medications (i.e. Indocin, Advil, Aspirin, Naprosyn, Aleve, Motrin, etc.) as these may inhibit the chance of a solid fusion. Tylenol is okay to take. B. Your surgical incision has been closed with a cosmetic suture under the skin that will dissolve in about 6 weeks. In 14 days, you can use a pair of clean scissors and cut the suture that is left outside of the skin at the ends of your incision. C. Complications are uncommon, but please contact us if you have any signs or symptoms of: 1. wound infection (fever higher than 102.5 degrees F, redness, separation of wound, drainage, or increasing pain from the incision) 2. blood clots in legs (pain, swelling, redness and warmth in legs) 3. urinary tract infection (fever higher than 102.5 degrees, burning upon urination or increased frequency of urination) 4. nerve problems (inability to walk on your toes or heels, numbness, loss of bowel or bladder control) 5. any other symptoms that concern you. D. Please call the office at if you have any concerns or questions about your operation or recovery. MANAGING PAIN AFTER SPINAL SURGERY 1. Narcotic medication is intended for short-term use and will be provided for surgical pain. Surgical pain usually lasts for a period of 4-6 weeks. Narcotic medication includes Percocet, Vicodin, Darvocet, Tylenol #3 or Lortab. 2. Longer-term pain is more appropriately treated with non-narcotic medication such as Tylenol ES. 3. Muscle spasm is not appropriately treated with narcotics. Muscle relaxers such as Soma, Flexeril or Skelaxin can be used along with Tylenol ES. 4. Remember that we all live with some "aches and pains". This is not unusual or uncommon after an injury or as we get older. 5. We will provide appropriate medication within the normal guidelines of their prescribed use. We will also be very cautious and aware of potential abuse and extended duration of patients' medication needs. 6. Please allow 2-3 days to process refills. Prescriptions will not be mailed but must be picked up at the office. FOLLOW UP VISIT: Keep your scheduled follow-up appointment. Any questions, please call the office at .
[2025-03-29] MEDS: ASCORBIC ACID 500 MG TAB PO SCH (08:52)
[2025-03-29] MEDS ORDERED: SPIRONOLACTONE 100 MG TAB PO SCH (09:00)
[2025-03-29] MEDS ORDERED: BUMETANIDE 1 MG TAB PO SCH (09:00)
[2025-03-29] MEDS: LANTUS PER UNIT CHARGE SC ONE (09:07)
[2025-03-29 10:53] VITALS: BP 138/72; TEMP 98.1
[2025-03-29 11:03] VITALS: PULSE 77; RESP 16; O2SAT 95
== END 2025-03-29 12:54 | disposition home or self-care (01) | DRG 472 ==
LOC: ASU 06:22 → 3E 09:23 → INTOOBSV 09:23